=== PATIENT | female | born 1950 | race Caucasian/White ===

== ENCOUNTER 2017-09-03 16:38 | Inpatient (IN) | payer MEDICARE, OTHER ==
[2017-09-03 17:44] LABS: ADD MAN DIFF? NO
[2017-09-03 17:51] LABS: BASOPHIL # 0.1 10^3/ul (0.0-0.1); BASOPHILS % 0.4 % (0.0-2.0); EOSINOPHILS # 0.2 10^3/ul (0.0-0.5); EOSINOPHILS % 1.5 % (0.0-7.0); HEMOGLOBIN 12.2 g/dl (12.0-16.0); LYMPHOCYTES # 1.5 10^3/ul (0.8-2.9); LYMPHOCYTES % 12.9 % (15.0-51.0); MEAN CORPUSCULAR HEMOGLOBIN 29.7 pg (29.0-33.0); MEAN CORPUSCULAR HGB CONC 30.5 g/dl (32.0-37.0); MEAN CORPUSCULAR VOLUME 97.3 fl (82.0-101.0); MONOCYTE # 0.8 10^3/ul (0.3-0.9); MONOCYTES % 6.8 % (0.0-11.0); NEUTROPHIL # 8.8 10^3/ul (1.6-7.5); NEUTROPHILS % 76.7 % (39.0-77.0); NUCLEATED RED BLOOD CELLS # 0.1 10^3/ul (0.0-0.0); NUCLEATED RED BLOOD CELLS% 0.4 /100WBC (0.0-0.0); PLATELET COUNT 328 10^3/UL (140-415); RED BLOOD COUNT 4.11 10^6/ul (4.20-5.40); RED CELL DISTRIBUTION WIDTH 16.5 % (11.5-14.5)
[2017-09-03 17:51] LABS: WHITE BLOOD COUNT 11.4 10^3/ul (4.8-10.8)
[2017-09-03 18:07] LABS: INR 0.87; PROTIME 11.9 Sec (11.9-14.9); PT RATIO 0.9
[2017-09-03 18:19] LABS: ALANINE AMINOTRANSFERASE 61 IU/L (13-69); ALBUMIN/GLOBULIN RATIO 1.21; ALKALINE PHOSPHATASE 120 IU/L (42-121); ASPARTATE AMINO TRANSFERASE 40 IU/L (15-46); BILIRUBIN,INDIRECT 0.1 mg/dl (0-1.1); BILIRUBIN,TOTAL 0.1 mg/dl (0.2-1.3); BLOOD UREA NITROGEN 15 mg/dl (7-20); CALCIUM 9.5 mg/dl (8.4-10.2); CHLORIDE 89 mmol/L (97-110); CREATININE 0.83 mg/dl (0.44-1.00); GLUCOSE 301 mg/dl (70-220); POTASSIUM 4.4 mmol/L (3.5-5.1); SODIUM 142 mmol/L (135-144); TOTAL PROTEIN 7.3 g/dl (6.1-8.1)
[2017-09-03 18:48] LABS: B-TYPE NATRIURETIC PEPTIDE 1890 PG/ML (0-125)
[2017-09-03 18:49] LABS: CARBON DIOXIDE 43 mmol/L (21-31)
[2017-09-03 18:50] LABS: ANION GAP 14 (8-16)
[2017-09-03 18:52] LABS: TROPONIN-I < 0.012 ng/ml (0.00-0.12)
[2017-09-03] MEDS: FUROSEMIDE 40 MG INJ IV (21:57)
[2017-09-03] MEDS ORDERED: ONDANSETRON 4 MG INJ IV (22:00)
[2017-09-03] MEDS ORDERED: ACETAMINOPHEN 325 MG TAB PO (22:00)
[2017-09-04] MEDS ORDERED: NITROGLYCERIN (SL) 0.4 MG TAB SL
[2017-09-04] MEDS ORDERED: ONDANSETRON 4 MG INJ IV
[2017-09-04] MEDS ORDERED: ACETAMINOPHEN 325 MG TAB PO
[2017-09-04] MEDS ORDERED: NACL 0.9% 3 ML SYG IV
[2017-09-04] MEDS ORDERED: morphine 2 MG INJ IV
[2017-09-04 00:38] LABS: CREATINE KINASE 29 IU/L (23-200)
[2017-09-04 00:50] LABS: CK INDEX 3.9; CK-MB 1.14 ng/ml (0.0-2.4)
[2017-09-04 00:54] LABS: TROPONIN-I < 0.012 ng/ml (0.00-0.12)
[2017-09-04] MEDS: IOHEXOL 100 ML (02:57)
[2017-09-04] MEDS: SOD CHLORIDE 0.9% 100 ML (03:56)
[2017-09-04 05:49] LABS: WHITE BLOOD COUNT 12.1 10^3/ul (4.8-10.8)
[2017-09-04 05:49] LABS: ADD MAN DIFF? NO; BASOPHILS % 0.3 % (0.0-2.0); EOSINOPHILS # 0.2 10^3/ul (0.0-0.5); EOSINOPHILS % 1.7 % (0.0-7.0); HEMATOCRIT 39.8 % (37.0-47.0); LYMPHOCYTES % 16.3 % (15.0-51.0); MEAN CORPUSCULAR HEMOGLOBIN 29.3 pg (29.0-33.0); MEAN CORPUSCULAR HGB CONC 30.2 g/dl (32.0-37.0); MEAN CORPUSCULAR VOLUME 97.1 fl (82.0-101.0); MEAN PLATELET VOLUME 9.9 fl (7.4-10.4); MONOCYTES % 8.6 % (0.0-11.0); NEUTROPHIL # 8.7 10^3/ul (1.6-7.5); NEUTROPHILS % 71.9 % (39.0-77.0); NUCLEATED RED BLOOD CELLS% 0.2 /100WBC (0.0-0.0); PLATELET COUNT 314 10^3/UL (140-415); RED CELL DISTRIBUTION WIDTH 16.6 % (11.5-14.5)
[2017-09-04] MEDS ORDERED: ALBUTEROL HFA 8 GM INHALER INH (06:00)
[2017-09-04 06:06] LABS: CREATINE KINASE 33 IU/L (23-200)
[2017-09-04 06:12] LABS: ALANINE AMINOTRANSFERASE 53 IU/L (13-69); ALBUMIN 3.6 g/dl (3.3-4.9); ALBUMIN/GLOBULIN RATIO 1.28; ALKALINE PHOSPHATASE 115 IU/L (42-121); ASPARTATE AMINO TRANSFERASE 34 IU/L (15-46); BILIRUBIN,INDIRECT 0.2 mg/dl (0-1.1); BILIRUBIN,TOTAL 0.2 mg/dl (0.2-1.3); BLOOD UREA NITROGEN 18 mg/dl (7-20); CALCIUM 9.4 mg/dl (8.4-10.2); CHLORIDE 87 mmol/L (97-110); CREATININE 0.81 mg/dl (0.44-1.00); GLUCOSE 246 mg/dl (70-220); MAGNESIUM 1.7 mg/dl (1.7-2.5); POTASSIUM 4.4 mmol/L (3.5-5.1); SODIUM 142 mmol/L (135-144); TOTAL PROTEIN 6.4 g/dl (6.1-8.1)
[2017-09-04 06:14] LABS: CK INDEX 3.4; CK-MB 1.13 ng/ml (0.0-2.4)
[2017-09-04 06:33] LABS: ANION GAP 19 (8-16)
[2017-09-04 06:35] LABS: TROPONIN-I < 0.012 ng/ml (0.00-0.12)
[2017-09-04 07:16] LABS: CARBON DIOXIDE 45 mmol/L (21-31)
[2017-09-04] MEDS ORDERED: ENOXAPARIN 40 MG/0.4 ML SYG SC (10:00)
[2017-09-04] MEDS ORDERED: GLUCOSE GEL 15 GRAM TUBE PO ×2 (10:30)
[2017-09-04] MEDS ORDERED: GLUCOSE GEL 15 GRAM TUBE BUCCAL (10:30)
[2017-09-04] MEDS ORDERED: GLUCAGON 1 MG INJ IM (10:30)
[2017-09-04] MEDS ORDERED: DEXTROSE 50% 50 ML SYRINGE IV ×2 (10:30)
[2017-09-04] MEDS: INSULIN ASPART [NOVOLOG] 3 ML PEN SC ×2 (11:50)
[2017-09-04] MEDS: SPIRONOLACTONE 25 MG TAB PO (12:18)
[2017-09-04] MEDS: AMIODARONE 200 MG TAB PO (12:19)
[2017-09-04] MEDS: METOPROLOL 25 MG TAB PO ×2 (12:19→21:00)
[2017-09-04] MEDS: ENOXAPARIN 40 MG/0.4 ML SYG SC (12:22)
[2017-09-04] MEDS: DIGOXIN 0.125 MG TAB PO (12:25)
[2017-09-04] MEDS: ALBUTEROL/IPRATROPIUM (NEB) 3 ML AMP HHN ×2 (15:22→19:12)
[2017-09-04] MEDS: FUROSEMIDE 40 MG INJ IV (16:53)
[2017-09-04] MEDS: REPAGLINIDE 1 MG TAB PO (17:01)
[2017-09-04] MEDS ORDERED: INSULIN GLARGINE [LANtus] 3 ML PEN SC (20:00)
[2017-09-04] MEDS: SALMETEROL/FLUTICASONE 250/50 INHA INH (20:18)
[2017-09-04] MEDS: ATORVASTATIN 40 MG TAB PO (20:18)
[2017-09-05 08:06] LABS: ADD MAN DIFF? NO
[2017-09-05 08:10] LABS: WHITE BLOOD COUNT 9.3 10^3/ul (4.8-10.8)
[2017-09-05 08:10] LABS: BASOPHILS % 0.4 % (0.0-2.0); EOSINOPHILS # 0.2 10^3/ul (0.0-0.5); EOSINOPHILS % 1.6 % (0.0-7.0); HEMATOCRIT 38.7 % (37.0-47.0); HEMOGLOBIN 11.8 g/dl (12.0-16.0); LYMPHOCYTES # 1.5 10^3/ul (0.8-2.9); LYMPHOCYTES % 16.2 % (15.0-51.0); MEAN CORPUSCULAR HEMOGLOBIN 29.5 pg (29.0-33.0); MEAN CORPUSCULAR HGB CONC 30.5 g/dl (32.0-37.0); MEAN CORPUSCULAR VOLUME 96.8 fl (82.0-101.0); MEAN PLATELET VOLUME 9.9 fl (7.4-10.4); MONOCYTE # 0.7 10^3/ul (0.3-0.9); MONOCYTES % 7.4 % (0.0-11.0); NEUTROPHIL # 6.9 10^3/ul (1.6-7.5); NEUTROPHILS % 73.4 % (39.0-77.0); PLATELET COUNT 306 10^3/UL (140-415); RED CELL DISTRIBUTION WIDTH 16.8 % (11.5-14.5)
[2017-09-05 08:23] LABS: CHOL/HDL RATIO 6.5 RATIO; CHOLESTEROL 189 mg/dl (100-200); HDL CHOLESTEROL 29 mg/dl (35-98); LDL CHOLESTEROL,CALCULATED 124 mg/dl; MAGNESIUM 1.7 mg/dl (1.7-2.5); TRIGLYCERIDES 179 mg/dl (0-149)
[2017-09-05 08:23] LABS: PHOSPHORUS 4.6 mg/dl (2.5-4.9)
[2017-09-05 08:25] LABS: ALANINE AMINOTRANSFERASE 52 IU/L (13-69); ALBUMIN 3.6 g/dl (3.3-4.9); ALBUMIN/GLOBULIN RATIO 1.16; ALKALINE PHOSPHATASE 106 IU/L (42-121); ASPARTATE AMINO TRANSFERASE 29 IU/L (15-46); BILIRUBIN,INDIRECT 0.3 mg/dl (0-1.1); BILIRUBIN,TOTAL 0.3 mg/dl (0.2-1.3); BLOOD UREA NITROGEN 17 mg/dl (7-20); CALCIUM 9.3 mg/dl (8.4-10.2); CHLORIDE 86 mmol/L (97-110); CREATININE 0.87 mg/dl (0.44-1.00); GLUCOSE 254 mg/dl (70-220); POTASSIUM 4.2 mmol/L (3.5-5.1); SODIUM 141 mmol/L (135-144); TOTAL PROTEIN 6.7 g/dl (6.1-8.1)
[2017-09-05] MEDS: SALMETEROL/FLUTICASONE 250/50 INHA INH ×2 (08:41→20:24)
[2017-09-05] MEDS: SPIRONOLACTONE 25 MG TAB PO (08:42)
[2017-09-05] MEDS: REPAGLINIDE 1 MG TAB PO ×3 (08:42→17:23)
[2017-09-05] MEDS: LINAGLIPTIN 5 MG TABLET PO (08:42)
[2017-09-05 08:46] LABS: ANION GAP 11 (8-16); CARBON DIOXIDE 48 mmol/L (21-31)
[2017-09-05] MEDS: ENOXAPARIN 40 MG/0.4 ML SYG SC (08:48)
[2017-09-05] MEDS: ALBUTEROL/IPRATROPIUM (NEB) 3 ML AMP HHN ×3 (09:39→19:23)
[2017-09-05] MEDS: METOPROLOL 25 MG TAB PO ×2 (10:06→20:28)
[2017-09-05] MEDS: ACETAZOLAMIDE 500 MG INJ IV (12:25)
[2017-09-05] MEDS: DIGOXIN 0.125 MG TAB PO (12:28)
[2017-09-05] MEDS: BUMETANIDE 1 MG TAB PO (17:23)
[2017-09-05] MEDS: ATORVASTATIN 40 MG TAB PO (20:25)
[2017-09-06] MEDS: BUMETANIDE 1 MG TAB PO ×2 (06:43→17:13)
[2017-09-06] MEDS: REPAGLINIDE 1 MG TAB PO ×3 (08:16→17:13)
[2017-09-06] MEDS: LINAGLIPTIN 5 MG TABLET PO (08:16)
[2017-09-06] MEDS: SPIRONOLACTONE 25 MG TAB PO (08:16)
[2017-09-06] MEDS: METOPROLOL 25 MG TAB PO ×2 (08:17→20:32)
[2017-09-06] MEDS: SALMETEROL/FLUTICASONE 250/50 INHA INH ×2 (08:17→20:32)
[2017-09-06 08:24] LABS: ADD MAN DIFF? NO
[2017-09-06] MEDS: ENOXAPARIN 40 MG/0.4 ML SYG SC (08:27)
[2017-09-06 08:35] LABS: WHITE BLOOD COUNT 10.3 10^3/ul (4.8-10.8)
[2017-09-06 08:35] LABS: BASOPHIL # 0.1 10^3/ul (0.0-0.1); BASOPHILS % 0.5 % (0.0-2.0); EOSINOPHILS # 0.2 10^3/ul (0.0-0.5); HEMATOCRIT 39.5 % (37.0-47.0); LYMPHOCYTES # 1.8 10^3/ul (0.8-2.9); LYMPHOCYTES % 17.5 % (15.0-51.0); MEAN CORPUSCULAR HEMOGLOBIN 29.2 pg (29.0-33.0); MEAN CORPUSCULAR HGB CONC 30.4 g/dl (32.0-37.0); MEAN CORPUSCULAR VOLUME 96.1 fl (82.0-101.0); MEAN PLATELET VOLUME 10.2 fl (7.4-10.4); MONOCYTE # 0.8 10^3/ul (0.3-0.9); MONOCYTES % 7.9 % (0.0-11.0); NEUTROPHIL # 7.4 10^3/ul (1.6-7.5); NEUTROPHILS % 71.4 % (39.0-77.0); PLATELET COUNT 323 10^3/UL (140-415); RED BLOOD COUNT 4.11 10^6/ul (4.20-5.40); RED CELL DISTRIBUTION WIDTH 16.9 % (11.5-14.5)
[2017-09-06 08:49] LABS: BLOOD UREA NITROGEN 24 mg/dl (7-20); CALCIUM 9.7 mg/dl (8.4-10.2); CHLORIDE 88 mmol/L (97-110); GLUCOSE 251 mg/dl (70-220); POTASSIUM 4.3 mmol/L (3.5-5.1)
[2017-09-06 08:55] LABS: PHOSPHORUS 5.3 mg/dl (2.5-4.9)
[2017-09-06 08:55] LABS: MAGNESIUM 1.9 mg/dl (1.7-2.5)
[2017-09-06 09:05] LABS: ANION GAP 15 (8-16)
[2017-09-06 09:09] LABS: SODIUM 140 mmol/L (135-144)
[2017-09-06] MEDS: INSULIN GLARGINE [LANtus] 3 ML PEN SC ×2 (09:56→11:57)
[2017-09-06] MEDS: ALBUTEROL/IPRATROPIUM (NEB) 3 ML AMP HHN ×3 (10:20→20:20)
[2017-09-06] MEDS: DIGOXIN 0.125 MG TAB PO (13:00)
[2017-09-06] MEDS: INSULIN ASPART [NOVOLOG] 3 ML PEN SC ×4 (13:41→20:36)
[2017-09-06] MEDS: ATORVASTATIN 40 MG TAB PO (20:32)
[2017-09-07] MEDS: BUMETANIDE 1 MG TAB PO ×2 (06:28→17:02)
[2017-09-07] MEDS: ALBUTEROL/IPRATROPIUM (NEB) 3 ML AMP HHN ×3 (07:52→20:27)
[2017-09-07 08:07] LABS: ADD MAN DIFF? NO
[2017-09-07] MEDS: REPAGLINIDE 1 MG TAB PO ×3 (08:10→17:02)
[2017-09-07 08:13] LABS: WHITE BLOOD COUNT 10.4 10^3/ul (4.8-10.8)
[2017-09-07 08:13] LABS: BASOPHIL # 0.1 10^3/ul (0.0-0.1); BASOPHILS % 0.5 % (0.0-2.0); EOSINOPHILS # 0.2 10^3/ul (0.0-0.5); EOSINOPHILS % 1.9 % (0.0-7.0); HEMATOCRIT 39.9 % (37.0-47.0); HEMOGLOBIN 12.2 g/dl (12.0-16.0); LYMPHOCYTES # 1.8 10^3/ul (0.8-2.9); LYMPHOCYTES % 17.2 % (15.0-51.0); MEAN CORPUSCULAR HGB CONC 30.6 g/dl (32.0-37.0); MEAN PLATELET VOLUME 9.9 fl (7.4-10.4); MONOCYTE # 0.7 10^3/ul (0.3-0.9); MONOCYTES % 6.9 % (0.0-11.0); NEUTROPHIL # 7.6 10^3/ul (1.6-7.5); NEUTROPHILS % 73.1 % (39.0-77.0); PLATELET COUNT 329 10^3/UL (140-415); RED CELL DISTRIBUTION WIDTH 16.7 % (11.5-14.5)
[2017-09-07] MEDS: SPIRONOLACTONE 25 MG TAB PO (08:17)
[2017-09-07] MEDS: SALMETEROL/FLUTICASONE 250/50 INHA INH ×2 (08:17→20:51)
[2017-09-07] MEDS: LINAGLIPTIN 5 MG TABLET PO (08:17)
[2017-09-07] MEDS: INSULIN GLARGINE [LANtus] 3 ML PEN SC (08:26)
[2017-09-07] MEDS: ENOXAPARIN 40 MG/0.4 ML SYG SC (08:27)
[2017-09-07] MEDS: INSULIN ASPART [NOVOLOG] 3 ML PEN SC ×7 (08:27→20:55)
[2017-09-07] MEDS: METOPROLOL 25 MG TAB PO ×2 (08:29→20:53)
[2017-09-07 08:45] LABS: BLOOD UREA NITROGEN 25 mg/dl (7-20); CALCIUM 9.1 mg/dl (8.4-10.2); CHLORIDE 91 mmol/L (97-110); CREATININE 1.12 mg/dl (0.44-1.00); GLUCOSE 181 mg/dl (70-220); POTASSIUM 4.3 mmol/L (3.5-5.1); SODIUM 142 mmol/L (135-144)
[2017-09-07 08:58] LABS: ANION GAP 14 (8-16)
[2017-09-07 09:02] LABS: CARBON DIOXIDE 41 mmol/L (21-31)
[2017-09-07 10:05] LABS: CARBON DIOXIDE 41 mmol/L (21-31)
[2017-09-07] MEDS: DIGOXIN 0.125 MG TAB PO (13:00)
[2017-09-07] MEDS: ATORVASTATIN 40 MG TAB PO (20:51)
[2017-09-08] MEDS: BUMETANIDE 1 MG TAB PO ×2 (06:04→17:02)
[2017-09-08] MEDS: ALBUTEROL/IPRATROPIUM (NEB) 3 ML AMP HHN ×3 (08:08→21:56)
[2017-09-08 08:11] LABS: ADD MAN DIFF? NO
[2017-09-08 08:24] LABS: BASOPHILS % 0.3 % (0.0-2.0); EOSINOPHILS # 0.2 10^3/ul (0.0-0.5); EOSINOPHILS % 1.8 % (0.0-7.0); HEMATOCRIT 38.9 % (37.0-47.0); HEMOGLOBIN 11.9 g/dl (12.0-16.0); LYMPHOCYTES # 1.8 10^3/ul (0.8-2.9); LYMPHOCYTES % 16.7 % (15.0-51.0); MEAN CORPUSCULAR HEMOGLOBIN 28.7 pg (29.0-33.0); MEAN CORPUSCULAR HGB CONC 30.6 g/dl (32.0-37.0); MEAN PLATELET VOLUME 10.1 fl (7.4-10.4); MONOCYTE # 0.7 10^3/ul (0.3-0.9); MONOCYTES % 6.8 % (0.0-11.0); NEUTROPHIL # 7.7 10^3/ul (1.6-7.5); NEUTROPHILS % 73.8 % (39.0-77.0); PLATELET COUNT 317 10^3/UL (140-415); RED BLOOD COUNT 4.14 10^6/ul (4.20-5.40); RED CELL DISTRIBUTION WIDTH 16.7 % (11.5-14.5)
[2017-09-08 08:24] LABS: WHITE BLOOD COUNT 10.5 10^3/ul (4.8-10.8)
[2017-09-08] MEDS: REPAGLINIDE 1 MG TAB PO ×3 (08:42→17:02)
[2017-09-08] MEDS: LINAGLIPTIN 5 MG TABLET PO (08:43)
[2017-09-08] MEDS: SPIRONOLACTONE 25 MG TAB PO (08:46)
[2017-09-08] MEDS: SALMETEROL/FLUTICASONE 250/50 INHA INH ×2 (08:47→20:22)
[2017-09-08 08:53] LABS: BLOOD UREA NITROGEN 28 mg/dl (7-20); CALCIUM 8.8 mg/dl (8.4-10.2); CHLORIDE 92 mmol/L (97-110); CREATININE 1.04 mg/dl (0.44-1.00); GLUCOSE 182 mg/dl (70-220); POTASSIUM 3.8 mmol/L (3.5-5.1); SODIUM 142 mmol/L (135-144)
[2017-09-08] MEDS: INSULIN ASPART [NOVOLOG] 3 ML PEN SC ×6 (08:54→20:28)
[2017-09-08] MEDS: ENOXAPARIN 40 MG/0.4 ML SYG SC (08:56)
[2017-09-08] MEDS: INSULIN GLARGINE [LANtus] 3 ML PEN SC (08:56)
[2017-09-08] MEDS: METOPROLOL 25 MG TAB PO ×2 (08:59→20:24)
[2017-09-08 09:44] LABS: CARBON DIOXIDE 36 mmol/L (21-31)
[2017-09-08 09:45] LABS: ANION GAP 18 (8-16)
[2017-09-08] MEDS: DIGOXIN 0.125 MG TAB PO (11:56)
[2017-09-08] MEDS: ATORVASTATIN 40 MG TAB PO (20:22)
[2017-09-09] MEDS: ACCU-CHEK XX (02:32)
[2017-09-09] MEDS: BUMETANIDE 1 MG TAB PO ×2 (06:20→17:21)
[2017-09-09] MEDS: INSULIN GLARGINE [LANtus] 3 ML PEN SC (07:53)
[2017-09-09] MEDS: REPAGLINIDE 1 MG TAB PO ×3 (07:55→17:21)
[2017-09-09] MEDS: ALBUTEROL/IPRATROPIUM (NEB) 3 ML AMP HHN ×3 (08:20→19:35)
[2017-09-09] MEDS: SALMETEROL/FLUTICASONE 250/50 INHA INH ×2 (08:49→20:31)
[2017-09-09] MEDS: LINAGLIPTIN 5 MG TABLET PO (08:51)
[2017-09-09] MEDS: SPIRONOLACTONE 25 MG TAB PO (08:51)
[2017-09-09] MEDS: METOPROLOL 25 MG TAB PO ×2 (08:53→20:30)
[2017-09-09] MEDS: INSULIN ASPART [NOVOLOG] 3 ML PEN SC ×6 (08:58→20:33)
[2017-09-09] MEDS: ENOXAPARIN 40 MG/0.4 ML SYG SC (09:04)
[2017-09-09 09:20] LABS: ADD MAN DIFF? NO
[2017-09-09 09:29] LABS: BASOPHILS % 0.3 % (0.0-2.0); EOSINOPHILS # 0.2 10^3/ul (0.0-0.5); EOSINOPHILS % 1.3 % (0.0-7.0); HEMATOCRIT 42.1 % (37.0-47.0); LYMPHOCYTES # 1.5 10^3/ul (0.8-2.9); LYMPHOCYTES % 12.7 % (15.0-51.0); MEAN CORPUSCULAR HEMOGLOBIN 29.2 pg (29.0-33.0); MEAN CORPUSCULAR HGB CONC 30.9 g/dl (32.0-37.0); MEAN CORPUSCULAR VOLUME 94.6 fl (82.0-101.0); MEAN PLATELET VOLUME 9.5 fl (7.4-10.4); MONOCYTE # 0.8 10^3/ul (0.3-0.9); MONOCYTES % 6.7 % (0.0-11.0); NEUTROPHIL # 9.1 10^3/ul (1.6-7.5); NEUTROPHILS % 78.5 % (39.0-77.0); PLATELET COUNT 339 10^3/UL (140-415); RED BLOOD COUNT 4.45 10^6/ul (4.20-5.40); RED CELL DISTRIBUTION WIDTH 16.5 % (11.5-14.5)
[2017-09-09 09:29] LABS: WHITE BLOOD COUNT 11.7 10^3/ul (4.8-10.8)
[2017-09-09 10:02] LABS: ANION GAP 15 (8-16); BLOOD UREA NITROGEN 23 mg/dl (7-20); CALCIUM 8.7 mg/dl (8.4-10.2); CARBON DIOXIDE 39 mmol/L (21-31); CHLORIDE 93 mmol/L (97-110); CREATININE 0.91 mg/dl (0.44-1.00); GLUCOSE 185 mg/dl (70-220); SODIUM 143 mmol/L (135-144)
[2017-09-09 14:20] LABS: TROPONIN-I < 0.012 ng/ml (0.00-0.12)
[2017-09-09] MEDS: DIGOXIN 0.125 MG TAB PO (14:41)
[2017-09-09] MEDS: ATORVASTATIN 40 MG TAB PO (20:30)
[2017-09-10 01:32] LABS: TROPONIN-I < 0.012 ng/ml (0.00-0.12)
[2017-09-10] MEDS: ACCU-CHEK XX (01:46)
[2017-09-10] MEDS: ALBUTEROL/IPRATROPIUM (NEB) 3 ML AMP HHN ×3 (07:41→19:34)
[2017-09-10 07:46] LABS: ADD MAN DIFF? NO
[2017-09-10 07:52] LABS: BASOPHILS % 0.3 % (0.0-2.0); EOSINOPHILS # 0.1 10^3/ul (0.0-0.5); HEMATOCRIT 38.5 % (37.0-47.0); HEMOGLOBIN 11.9 g/dl (12.0-16.0); LYMPHOCYTES # 1.7 10^3/ul (0.8-2.9); LYMPHOCYTES % 15.6 % (15.0-51.0); MEAN CORPUSCULAR HEMOGLOBIN 29.2 pg (29.0-33.0); MEAN CORPUSCULAR HGB CONC 30.9 g/dl (32.0-37.0); MEAN CORPUSCULAR VOLUME 94.6 fl (82.0-101.0); MEAN PLATELET VOLUME 9.6 fl (7.4-10.4); MONOCYTE # 0.9 10^3/ul (0.3-0.9); MONOCYTES % 8.7 % (0.0-11.0); NEUTROPHIL # 7.8 10^3/ul (1.6-7.5); NEUTROPHILS % 73.9 % (39.0-77.0); PLATELET COUNT 298 10^3/UL (140-415); RED BLOOD COUNT 4.07 10^6/ul (4.20-5.40); RED CELL DISTRIBUTION WIDTH 16.4 % (11.5-14.5)
[2017-09-10 07:52] LABS: WHITE BLOOD COUNT 10.6 10^3/ul (4.8-10.8)
[2017-09-10 08:11] LABS: ANION GAP 13 (8-16); BLOOD UREA NITROGEN 24 mg/dl (7-20); CALCIUM 8.3 mg/dl (8.4-10.2); CARBON DIOXIDE 37 mmol/L (21-31); CHLORIDE 95 mmol/L (97-110); CREATININE 0.86 mg/dl (0.44-1.00); GLUCOSE 140 mg/dl (70-220); SODIUM 141 mmol/L (135-144)
[2017-09-10] MEDS: BUMETANIDE 1 MG TAB PO ×2 (08:14→17:38)
[2017-09-10] MEDS: REPAGLINIDE 1 MG TAB PO ×3 (08:14→17:26)
[2017-09-10] MEDS: INSULIN ASPART [NOVOLOG] 3 ML PEN SC ×7 (08:17→21:49)
[2017-09-10] MEDS: SALMETEROL/FLUTICASONE 250/50 INHA INH ×2 (08:19→21:41)
[2017-09-10] MEDS: INSULIN GLARGINE [LANtus] 3 ML PEN SC (08:19)
[2017-09-10] MEDS: SPIRONOLACTONE 25 MG TAB PO (08:24)
[2017-09-10] MEDS: METOPROLOL 25 MG TAB PO ×2 (08:24→21:40)
[2017-09-10] MEDS: LINAGLIPTIN 5 MG TABLET PO (08:24)
[2017-09-10] MEDS: ENOXAPARIN 40 MG/0.4 ML SYG SC (08:29)
[2017-09-10] MEDS: DIGOXIN 0.125 MG TAB PO (14:20)
[2017-09-10] MEDS: ATORVASTATIN 40 MG TAB PO (21:39)
[2017-09-11] MEDS: ACCU-CHEK XX (02:31)
[2017-09-11 07:00] LABS: ADD MAN DIFF? NO
[2017-09-11 07:02] LABS: WHITE BLOOD COUNT 10.8 10^3/ul (4.8-10.8)
[2017-09-11 07:02] LABS: BASOPHIL # 0.1 10^3/ul (0.0-0.1); BASOPHILS % 0.5 % (0.0-2.0); EOSINOPHILS # 0.1 10^3/ul (0.0-0.5); EOSINOPHILS % 1.2 % (0.0-7.0); HEMATOCRIT 37.5 % (37.0-47.0); HEMOGLOBIN 11.6 g/dl (12.0-16.0); LYMPHOCYTES # 1.6 10^3/ul (0.8-2.9); LYMPHOCYTES % 15.1 % (15.0-51.0); MEAN CORPUSCULAR HEMOGLOBIN 29.4 pg (29.0-33.0); MEAN CORPUSCULAR HGB CONC 30.9 g/dl (32.0-37.0); MEAN CORPUSCULAR VOLUME 94.9 fl (82.0-101.0); MONOCYTE # 0.8 10^3/ul (0.3-0.9); MONOCYTES % 7.6 % (0.0-11.0); NEUTROPHIL # 8.1 10^3/ul (1.6-7.5); NEUTROPHILS % 75.3 % (39.0-77.0); PLATELET COUNT 297 10^3/UL (140-415); RED BLOOD COUNT 3.95 10^6/ul (4.20-5.40); RED CELL DISTRIBUTION WIDTH 16.8 % (11.5-14.5)
[2017-09-11 07:23] LABS: BLOOD UREA NITROGEN 24 mg/dl (7-20); CALCIUM 8.5 mg/dl (8.4-10.2); CHLORIDE 95 mmol/L (97-110); CREATININE 1.01 mg/dl (0.44-1.00); GLUCOSE 128 mg/dl (70-220); SODIUM 144 mmol/L (135-144)
[2017-09-11 07:26] LABS: MAGNESIUM 2.2 mg/dl (1.7-2.5)
[2017-09-11 07:38] LABS: ANION GAP 17 (8-16); CARBON DIOXIDE 36 mmol/L (21-31)
[2017-09-11] MEDS: INSULIN ASPART [NOVOLOG] 3 ML PEN SC ×7 (07:55→20:22)
[2017-09-11] MEDS: INSULIN GLARGINE [LANtus] 3 ML PEN SC (08:18)
[2017-09-11] MEDS: ENOXAPARIN 40 MG/0.4 ML SYG SC (08:18)
[2017-09-11] MEDS: LINAGLIPTIN 5 MG TABLET PO (08:19)
[2017-09-11] MEDS: SPIRONOLACTONE 25 MG TAB PO (08:19)
[2017-09-11] MEDS: REPAGLINIDE 1 MG TAB PO ×3 (08:19→17:07)
[2017-09-11] MEDS: METOPROLOL 25 MG TAB PO ×2 (08:19→20:14)
[2017-09-11] MEDS: BUMETANIDE 1 MG TAB PO ×2 (08:19→17:07)
[2017-09-11] MEDS: SALMETEROL/FLUTICASONE 250/50 INHA INH ×2 (08:20→20:13)
[2017-09-11] MEDS: ALBUTEROL/IPRATROPIUM (NEB) 3 ML AMP HHN ×3 (08:48→20:19)
[2017-09-11] MEDS: DIGOXIN 0.125 MG TAB PO (12:05)
[2017-09-11] MEDS: ATORVASTATIN 40 MG TAB PO (20:13)
[2017-09-12] MEDS: ACCU-CHEK XX (02:00)
[2017-09-12] MEDS: BUMETANIDE 1 MG TAB PO ×3 (06:10→17:15)
[2017-09-12] MEDS: INSULIN ASPART [NOVOLOG] 3 ML PEN SC ×6 (07:55→17:17)
[2017-09-12] MEDS: ALBUTEROL/IPRATROPIUM (NEB) 3 ML AMP HHN ×2 (08:22→15:28)
[2017-09-12] MEDS: SALMETEROL/FLUTICASONE 250/50 INHA INH (08:36)
[2017-09-12] MEDS: REPAGLINIDE 1 MG TAB PO ×3 (08:43→17:15)
[2017-09-12] MEDS: LINAGLIPTIN 5 MG TABLET PO (08:43)
[2017-09-12] MEDS: SPIRONOLACTONE 25 MG TAB PO (08:43)
[2017-09-12] MEDS: METOPROLOL 25 MG TAB PO (08:44)
[2017-09-12] MEDS: INSULIN GLARGINE [LANtus] 3 ML PEN SC (08:46)
[2017-09-12] MEDS: ENOXAPARIN 40 MG/0.4 ML SYG SC (08:47)
[2017-09-12] MEDS: DIGOXIN 0.125 MG TAB PO (11:55)
== END 2017-09-12 17:35 | disposition home health service (06) | DRG 291 ==
LOC: TEL 21:56 → E/R 16:38
DX: I11.0 Hypertensive heart disease with heart failure (principal); J96.21 Acute and chronic respiratory failure with hypoxia; I27.20 Pulmonary hypertension, unspecified; Z68.41 Body mass index [BMI] 40.0-44.9, adult; E66.2 Morbid (severe) obesity with alveolar hypoventilation; E11.65 Type 2 diabetes mellitus with hyperglycemia; J96.22 Acute and chronic respiratory failure with hypercapnia; Z99.81 Dependence on supplemental oxygen; I50.33 Acute on chronic diastolic (congestive) heart failure; J44.9 Chronic obstructive pulmonary disease, unspecified; I48.2 Chronic atrial fibrillation; E78.5 Hyperlipidemia, unspecified; R07.89 Other chest pain; Z79.4 Long term (current) use of insulin; Z90.5 Acquired absence of kidney; Z87.891 Personal history of nicotine dependence; Z90.710 Acquired absence of both cervix and uterus; Z85.3 Personal history of malignant neoplasm of breast
CPT/HCPCS: 36415; 71045; 71275; 80048; 80053; 80061; 82550; 82553; 82962; 83036; 83735; 83880; 84100; 84443; 84484; 85025; 85378; 85610; 87400; 93005; 93306; 93970; 94640; 94664; 96374; 97161; 99285-25; J1120

== ENCOUNTER 2018-04-03 18:57 | Inpatient (IN) | payer MEDICARE, OTHER ==
[2018-04-03] MEDS: IPRATROPIUM (NEB) 0.5 MG/2.5 ML AMP INH (19:22)
[2018-04-03] MEDS: ALBUTEROL 0.5% (NEB) 2.5 MG/0.5 ML AMP INH (19:22)
[2018-04-03 19:34] LABS: ADD MAN DIFF? NO
[2018-04-03 19:36] LABS: BASOPHILS % 0.3 % (0.0-2.0); EOSINOPHILS # 0.2 10^3/ul (0.0-0.5); EOSINOPHILS % 1.7 % (0.0-7.0); HEMATOCRIT 43.1 % (37.0-47.0); LYMPHOCYTES # 1.8 10^3/ul (0.8-2.9); LYMPHOCYTES % 17.4 % (15.0-51.0); MEAN CORPUSCULAR HEMOGLOBIN 29.2 pg (29.0-33.0); MEAN CORPUSCULAR HGB CONC 30.2 g/dl (32.0-37.0); MEAN CORPUSCULAR VOLUME 96.9 fl (82.0-101.0); MEAN PLATELET VOLUME 10.2 fl (7.4-10.4); MONOCYTE # 0.8 10^3/ul (0.3-0.9); MONOCYTES % 7.5 % (0.0-11.0); NEUTROPHIL # 7.5 10^3/ul (1.6-7.5); NEUTROPHILS % 72.6 % (39.0-77.0); PLATELET COUNT 207 10^3/UL (140-415); RED BLOOD COUNT 4.45 10^6/ul (4.20-5.40); RED CELL DISTRIBUTION WIDTH 17.2 % (11.5-14.5)
[2018-04-03 19:36] LABS: WHITE BLOOD COUNT 10.3 10^3/ul (4.8-10.8)
[2018-04-03 19:50] LABS: INR 0.85; PROTIME 11.7 Sec (11.9-14.9); PT RATIO 0.9
[2018-04-03 19:51] LABS: PARTIAL THROMBOPLASTIN TIME 32.4 Sec (23.0-35.0)
[2018-04-03] MEDS: METHYLPREDNISOLONE 125 MG INJ IV (19:52)
[2018-04-03 19:55] LABS: LACTIC ACID 1.2 mmol/L (0.5-2.0)
[2018-04-03 19:57] LABS: ALANINE AMINOTRANSFERASE 35 IU/L (13-69); ALBUMIN 3.4 g/dl (3.3-4.9); ALBUMIN/GLOBULIN RATIO 1.06; ALKALINE PHOSPHATASE 75 IU/L (42-121); AMYLASE 78 U/L (11-123); ASPARTATE AMINO TRANSFERASE 34 IU/L (15-46); BILIRUBIN,INDIRECT 0.4 mg/dl (0-1.1); BILIRUBIN,TOTAL 0.4 mg/dl (0.2-1.3); BLOOD UREA NITROGEN 19 mg/dl (7-20); CALCIUM 9.5 mg/dl (8.4-10.2); CHLORIDE 92 mmol/L (97-110); CREATININE 0.76 mg/dl (0.44-1.00); GLUCOSE 117 mg/dl (70-220); LIPASE 487 U/L (23-300); POTASSIUM 4.6 mmol/L (3.5-5.1); SODIUM 139 mmol/L (135-144); TOTAL PROTEIN 6.6 g/dl (6.1-8.1)
[2018-04-03] MEDS ORDERED: ONDANSETRON 4 MG INJ IV (20:00)
[2018-04-03] MEDS ORDERED: ACETAMINOPHEN 325 MG TAB PO ×2 (20:00→20:30)
[2018-04-03 20:05] LABS: ANION GAP 11 (8-16)
[2018-04-03 20:07] LABS: CARBON DIOXIDE 41 mmol/L (21-31)
[2018-04-03 20:08] LABS: TROPONIN-I < 0.012 ng/ml (0.000-0.120)
[2018-04-03] MEDS: CEFEPIME 2GM/50 ML (PMX) 50 ML IVPB (20:24)
[2018-04-03] MEDS ORDERED: NACL 0.9% 3 ML SYG IV (20:30)
[2018-04-03] MEDS ORDERED: DOCUSATE SODIUM 100 MG CAP PO (20:30)
[2018-04-03] MEDS ORDERED: BISACODYL (EC) 5 MG TAB PO (20:30)
[2018-04-03] MEDS ORDERED: HYDROCODONE/APAP (5/325) TAB PO (20:30)
[2018-04-03] MEDS ORDERED: LEVALBUTEROL (NEB) 1.25 MG/0.5 ML AMP HHN (20:30)
[2018-04-03 20:39] LABS: ADD UMIC YES; UR ASCORBIC ACID NEGATIVE (NEGATIVE); UR BACTERIA FEW /HPF (NONE SEEN); UR BILIRUBIN (Dip) NEGATIVE (NEGATIVE); UR BLOOD (Dip) NEGATIVE (NEGATIVE); UR CLARITY CLEAR (CLEAR); UR COLOR YELLOW (YELLOW); UR GLUCOSE (Dip) NEGATIVE (NEGATIVE); UR KETONES (Dip) NEGATIVE (NEGATIVE); UR LEUKOCYTE ESTERASE (Dip) NEGATIVE Leu/ul (NEGATIVE); UR NITRITE (Dip) NEGATIVE (NEGATIVE); UR RBC 0 /HPF (0-5); UR SPECIFIC GRAVITY (Dip) 1.009 (1.003-1.030); UR SQUAMOUS EPITHELIAL CELL FEW /HPF (FEW); UR TOTAL PROTEIN (Dip) 1+ mg/dl (NEGATIVE); UR UROBILINOGEN (Dip) NEGATIVE (NEGATIVE); UR WBC 5 /HPF (0-5)
[2018-04-03] MEDS: VANCOMYCIN 1 GM (PMX) 250 ML IVPB (21:01)
[2018-04-03] MEDS: ALBUTEROL/IPRATROPIUM (NEB) 3 ML AMP HHN (21:12)
[2018-04-03 21:19] LABS: LACTIC ACID 1.5 mmol/L (0.5-2.0)
[2018-04-04] MEDS: METHYLPREDNISOLONE 40 MG INJ IV ×2 (00:34→06:15)
[2018-04-04 01:28] LABS: LACTIC ACID 4.2 mmol/L (0.5-2.0)
[2018-04-04] MEDS: SOD CHLORIDE 0.9% 500 ML IV ×2 (01:58→15:08)
[2018-04-04] MEDS ORDERED: DEXTROSE 50% 50 ML SYRINGE IV ×2 (06:00)
[2018-04-04] MEDS ORDERED: GLUCAGON 1 MG INJ IM (06:00)
[2018-04-04] MEDS ORDERED: GLUCOSE GEL 15 GRAM TUBE BUCCAL (06:00)
[2018-04-04] MEDS ORDERED: GLUCOSE GEL 15 GRAM TUBE PO ×2 (06:00)
[2018-04-04] MEDS: BUMETANIDE 1 MG TAB PO (06:00)
[2018-04-04 06:04] LABS: ADD MAN DIFF? NO
[2018-04-04 06:13] LABS: ABNORMAL IP MESSAGE 1; BASOPHILS % 0.3 % (0.0-2.0); HEMATOCRIT 44.9 % (37.0-47.0); HEMOGLOBIN 13.3 g/dl (12.0-16.0); LYMPHOCYTES # 0.3 10^3/ul (0.8-2.9); LYMPHOCYTES % 3.5 % (15.0-51.0); MEAN CORPUSCULAR HEMOGLOBIN 29.4 pg (29.0-33.0); MEAN CORPUSCULAR HGB CONC 29.6 g/dl (32.0-37.0); MEAN CORPUSCULAR VOLUME 99.3 fl (82.0-101.0); MONOCYTE # 0.1 10^3/ul (0.3-0.9); MONOCYTES % 0.6 % (0.0-11.0); NEUTROPHIL # 9.2 10^3/ul (1.6-7.5); NEUTROPHILS % 94.3 % (39.0-77.0); PLATELET COUNT 191 10^3/UL (140-415); RED BLOOD COUNT 4.52 10^6/ul (4.20-5.40); RED CELL DISTRIBUTION WIDTH 17.1 % (11.5-14.5)
[2018-04-04 06:13] LABS: WHITE BLOOD COUNT 9.8 10^3/ul (4.8-10.8)
[2018-04-04] MEDS: PANTOPRAZOLE 40 MG INJ IV (06:15)
[2018-04-04] MEDS: PIPER-TAZO 3.375 GM IV (PMX) 100 ML IVPB ×3 (06:15→17:33)
[2018-04-04 06:19] LABS: POSITIVE DIFF @See below
[2018-04-04 06:34] LABS: HEMOGLOBIN A1C 8.1 % (0-5.9)
[2018-04-04 06:39] LABS: LACTIC ACID 1.7 mmol/L (0.5-2.0)
[2018-04-04 06:44] LABS: LIPASE 156 U/L (23-300)
[2018-04-04 06:53] LABS: ALANINE AMINOTRANSFERASE 30 IU/L (13-69); ALBUMIN 3.4 g/dl (3.3-4.9); ALBUMIN/GLOBULIN RATIO 1.09; ALKALINE PHOSPHATASE 88 IU/L (42-121); ANION GAP 14 (8-16); ASPARTATE AMINO TRANSFERASE 25 IU/L (15-46); BILIRUBIN,INDIRECT 0.5 mg/dl (0-1.1); BILIRUBIN,TOTAL 0.5 mg/dl (0.2-1.3); BLOOD UREA NITROGEN 21 mg/dl (7-20); CALCIUM 8.9 mg/dl (8.4-10.2); CARBON DIOXIDE 39 mmol/L (21-31); CHLORIDE 92 mmol/L (97-110); CREATININE 0.76 mg/dl (0.44-1.00); MAGNESIUM 1.9 mg/dl (1.7-2.5); POTASSIUM 4.9 mmol/L (3.5-5.1); SODIUM 140 mmol/L (135-144); TOTAL PROTEIN 6.5 g/dl (6.1-8.1)
[2018-04-04 07:06] LABS: THYROID STIMULATING HORMONE 0.457 MIU/L (0.465-4.680)
[2018-04-04 07:07] LABS: GLUCOSE 403 mg/dl (70-220)
[2018-04-04] MEDS: INSULIN ASPART [NOVOLOG] 3 ML PEN SC ×8 (07:46→20:21)
[2018-04-04] MEDS: ACCU-CHEK XX ×4 (08:01→20:21)
[2018-04-04] MEDS: APIXABAN 5 MG TABLET PO ×2 (08:13→20:19)
[2018-04-04] MEDS: SPIRONOLACTONE 25 MG TAB PO (08:13)
[2018-04-04] MEDS: REPAGLINIDE 1 MG TAB PO ×3 (08:14→17:33)
[2018-04-04] MEDS: FLUTICASONE/VILANTEROL 100-25 INH (08:15)
[2018-04-04] MEDS: INSULIN GLARGINE [LANTus] (100 UNITS/ML) SYG SC (08:49)
[2018-04-04] MEDS: ALBUTEROL/IPRATROPIUM (NEB) 3 ML AMP HHN ×4 (10:06→20:43)
[2018-04-04 11:20] LABS: LACTIC ACID 2.6 mmol/L (0.5-2.0)
[2018-04-04] MEDS: FUROSEMIDE 40 MG INJ IV (12:04)
[2018-04-04] MEDS: DIGOXIN 0.125 MG TAB PO (12:45)
[2018-04-04 13:35] LABS: CREATINE KINASE 29 IU/L (23-200)
[2018-04-04 13:41] LABS: LACTIC ACID 3.7 mmol/L (0.5-2.0)
[2018-04-04 13:49] LABS: B-TYPE NATRIURETIC PEPTIDE 2230 PG/ML (0-125); CK INDEX 4.8; TROPONIN-I < 0.012 ng/ml (0.000-0.120)
[2018-04-04 18:46] LABS: CREATINE KINASE 31 IU/L (23-200)
[2018-04-04 18:59] LABS: CK INDEX 5.1; CK-MB 1.59 ng/ml (0.0-2.4); TROPONIN-I < 0.012 ng/ml (0.000-0.120)
[2018-04-04] MEDS: ATORVASTATIN 40 MG TAB PO (20:19)
[2018-04-05] MEDS: PIPER-TAZO 3.375 GM IV (PMX) 100 ML IVPB ×3 (00:29→11:26)
[2018-04-05] MEDS: ACCU-CHEK XX ×5 (02:00→21:00)
[2018-04-05] MEDS: PANTOPRAZOLE 40 MG INJ IV (05:19)
[2018-04-05 06:39] LABS: ADD MAN DIFF? NO
[2018-04-05 06:42] LABS: BASOPHILS % 0.1 % (0.0-2.0); EOSINOPHILS % 0.2 % (0.0-7.0); HEMOGLOBIN 12.4 g/dl (12.0-16.0); LYMPHOCYTES # 1.8 10^3/ul (0.8-2.9); LYMPHOCYTES % 14.7 % (15.0-51.0); MEAN CORPUSCULAR HEMOGLOBIN 29.2 pg (29.0-33.0); MEAN CORPUSCULAR HGB CONC 29.5 g/dl (32.0-37.0); MEAN CORPUSCULAR VOLUME 99.1 fl (82.0-101.0); MEAN PLATELET VOLUME 9.6 fl (7.4-10.4); MONOCYTE # 0.8 10^3/ul (0.3-0.9); MONOCYTES % 6.6 % (0.0-11.0); NEUTROPHIL # 9.3 10^3/ul (1.6-7.5); PLATELET COUNT 196 10^3/UL (140-415); RED BLOOD COUNT 4.24 10^6/ul (4.20-5.40); RED CELL DISTRIBUTION WIDTH 17.5 % (11.5-14.5)
[2018-04-05 07:02] LABS: ALANINE AMINOTRANSFERASE 23 IU/L (13-69); ALBUMIN 3.5 g/dl (3.3-4.9); ALBUMIN/GLOBULIN RATIO 1.25; ALKALINE PHOSPHATASE 64 IU/L (42-121); ASPARTATE AMINO TRANSFERASE 19 IU/L (15-46); BILIRUBIN,INDIRECT 0.3 mg/dl (0-1.1); BILIRUBIN,TOTAL 0.3 mg/dl (0.2-1.3); BLOOD UREA NITROGEN 25 mg/dl (7-20); CALCIUM 8.6 mg/dl (8.4-10.2); CHLORIDE 96 mmol/L (97-110); CREATININE 0.89 mg/dl (0.44-1.00); GLUCOSE 137 mg/dl (70-220); SODIUM 144 mmol/L (135-144); TOTAL PROTEIN 6.3 g/dl (6.1-8.1)
[2018-04-05 07:36] LABS: ANION GAP 10 (8-16); CARBON DIOXIDE 42 mmol/L (21-31)
[2018-04-05] MEDS: INSULIN ASPART [NOVOLOG] 3 ML PEN SC ×7 (07:51→21:16)
[2018-04-05] MEDS: REPAGLINIDE 1 MG TAB PO ×3 (07:59→17:19)
[2018-04-05] MEDS: INSULIN GLARGINE [LANTus] (100 UNITS/ML) SYG SC (08:04)
[2018-04-05] MEDS: APIXABAN 5 MG TABLET PO ×2 (08:09→21:13)
[2018-04-05] MEDS: predniSONE 20 MG TAB PO (08:09)
[2018-04-05] MEDS: SPIRONOLACTONE 25 MG TAB PO (08:09)
[2018-04-05] MEDS: FUROSEMIDE 40 MG INJ IV (08:10)
[2018-04-05] MEDS: FLUTICASONE/VILANTEROL 100-25 INH (08:10)
[2018-04-05] MEDS: ALBUTEROL/IPRATROPIUM (NEB) 3 ML AMP HHN ×4 (08:24→20:55)
[2018-04-05] MEDS: SOD CHLORIDE 0.9% 0 ML (11:14)
[2018-04-05] MEDS: IOHEXOL 0 ML (11:15)
[2018-04-05] MEDS: DIGOXIN 0.125 MG TAB PO (13:25)
[2018-04-05] MEDS: ATORVASTATIN 40 MG TAB PO (21:13)
[2018-04-06] MEDS: ACCU-CHEK XX ×5 (02:00→21:00)
[2018-04-06] MEDS: LEVOFLOXACIN 500 MG TAB PO (06:11)
[2018-04-06] MEDS: PANTOPRAZOLE 40 MG INJ IV (06:11)
[2018-04-06 06:12] LABS: ADD MAN DIFF? NO
[2018-04-06 06:18] LABS: WHITE BLOOD COUNT 11.4 10^3/ul (4.8-10.8)
[2018-04-06 06:18] LABS: BASOPHILS % 0.3 % (0.0-2.0); EOSINOPHILS # 0.1 10^3/ul (0.0-0.5); EOSINOPHILS % 0.5 % (0.0-7.0); HEMATOCRIT 42.4 % (37.0-47.0); HEMOGLOBIN 12.5 g/dl (12.0-16.0); LYMPHOCYTES # 2.5 10^3/ul (0.8-2.9); LYMPHOCYTES % 21.8 % (15.0-51.0); MEAN CORPUSCULAR HEMOGLOBIN 29.5 pg (29.0-33.0); MEAN CORPUSCULAR HGB CONC 29.5 g/dl (32.0-37.0); MEAN PLATELET VOLUME 9.9 fl (7.4-10.4); MONOCYTE # 0.7 10^3/ul (0.3-0.9); MONOCYTES % 6.4 % (0.0-11.0); NEUTROPHIL # 8.1 10^3/ul (1.6-7.5); NEUTROPHILS % 70.6 % (39.0-77.0); PLATELET COUNT 199 10^3/UL (140-415); RED BLOOD COUNT 4.24 10^6/ul (4.20-5.40); RED CELL DISTRIBUTION WIDTH 17.7 % (11.5-14.5)
[2018-04-06 07:21] LABS: BLOOD UREA NITROGEN 27 mg/dl (7-20); CALCIUM 8.8 mg/dl (8.4-10.2); CHLORIDE 95 mmol/L (97-110); CREATININE 0.82 mg/dl (0.44-1.00); GLUCOSE 137 mg/dl (70-220); MAGNESIUM 2.2 mg/dl (1.7-2.5); POTASSIUM 3.8 mmol/L (3.5-5.1); SODIUM 143 mmol/L (135-144)
[2018-04-06] MEDS: REPAGLINIDE 1 MG TAB PO ×3 (07:34→17:23)
[2018-04-06] MEDS: INSULIN ASPART [NOVOLOG] 3 ML PEN SC ×7 (07:36→21:47)
[2018-04-06 07:37] LABS: ANION GAP 9 (8-16); CARBON DIOXIDE 43 mmol/L (21-31)
[2018-04-06] MEDS: INSULIN GLARGINE [LANTus] (100 UNITS/ML) SYG SC (07:39)
[2018-04-06] MEDS: SPIRONOLACTONE 25 MG TAB PO (08:34)
[2018-04-06] MEDS: predniSONE 20 MG TAB PO (08:34)
[2018-04-06] MEDS: APIXABAN 5 MG TABLET PO ×2 (08:34→21:49)
[2018-04-06] MEDS: FLUTICASONE/VILANTEROL 100-25 INH (08:35)
[2018-04-06] MEDS: FUROSEMIDE 40 MG INJ IV (08:35)
[2018-04-06] MEDS: ALBUTEROL/IPRATROPIUM (NEB) 3 ML AMP HHN ×4 (09:25→21:15)
[2018-04-06] MEDS: DIGOXIN 0.125 MG TAB PO (14:30)
[2018-04-06] MEDS: BUMETANIDE 1 MG INJ IV (17:24)
[2018-04-06] MEDS: ATORVASTATIN 40 MG TAB PO (20:24)
[2018-04-07] MEDS: INSULIN ASPART [NOVOLOG] 3 ML PEN SC ×5 (00:30→11:44)
[2018-04-07] MEDS: ACCU-CHEK XX ×3 (02:47→11:37)
[2018-04-07] MEDS: LEVOFLOXACIN 500 MG TAB PO (05:46)
[2018-04-07] MEDS: BUMETANIDE 1 MG INJ IV (05:46)
[2018-04-07] MEDS: PANTOPRAZOLE 40 MG INJ IV (05:52)
[2018-04-07] MEDS: REPAGLINIDE 1 MG TAB PO ×2 (07:56→11:36)
[2018-04-07] MEDS: INSULIN GLARGINE [LANTus] (100 UNITS/ML) SYG SC (08:15)
[2018-04-07] MEDS: ALBUTEROL/IPRATROPIUM (NEB) 3 ML AMP HHN ×2 (09:18→13:49)
[2018-04-07] MEDS: APIXABAN 5 MG TABLET PO (09:52)
[2018-04-07] MEDS: predniSONE 20 MG TAB PO (09:52)
[2018-04-07] MEDS: FLUTICASONE/VILANTEROL 100-25 INH (09:52)
[2018-04-07] MEDS: SPIRONOLACTONE 25 MG TAB PO (09:52)
[2018-04-07] MEDS: DIGOXIN 0.125 MG TAB PO (12:10)
== END 2018-04-07 16:20 | disposition home or self-care (01) | DRG 871 ==
LOC: E/R 18:57 → TEL 19:48
DX: A41.9 Sepsis, unspecified organism (principal); J96.01 Acute respiratory failure with hypoxia; I50.33 Acute on chronic diastolic (congestive) heart failure; J18.9 Pneumonia, unspecified organism; J96.22 Acute and chronic respiratory failure with hypercapnia; Z68.41 Body mass index [BMI] 40.0-44.9, adult; J44.1 Chronic obstructive pulmonary disease with (acute) exacerbation; J90 Pleural effusion, not elsewhere classified; I48.2 Chronic atrial fibrillation; I11.0 Hypertensive heart disease with heart failure; Z99.81 Dependence on supplemental oxygen; E11.65 Type 2 diabetes mellitus with hyperglycemia; E78.5 Hyperlipidemia, unspecified; G47.33 Obstructive sleep apnea (adult) (pediatric); Y95 Nosocomial condition; E66.9 Obesity, unspecified; Z71.3 Dietary counseling and surveillance; Z79.4 Long term (current) use of insulin; Z79.02 Long term (current) use of antithrombotics/antiplatelets; Z87.891 Personal history of nicotine dependence; Z90.710 Acquired absence of both cervix and uterus
CPT/HCPCS: 71045; 71046; 71250; 80048; 80053; 81001; 82150; 82550; 82553; 82962; 83036; 83605; 83690; 83735; 83880; 84443; 84484; 85025; 85610; 85730; 87040; 87086; 93005; 93306; 94640; 94644; 94664; 97110; 97116; 97161; 97530; 99285-25

== ENCOUNTER 2018-04-20 18:36 | Inpatient (IN) | payer MEDICARE, OTHER ==
[2018-04-20 19:02] LABS: ADD MAN DIFF? NO
[2018-04-20 19:04] LABS: BASOPHILS % 0.3 % (0.0-2.0); EOSINOPHILS # 0.1 10^3/ul (0.0-0.5); EOSINOPHILS % 1.2 % (0.0-7.0); HEMATOCRIT 42.4 % (37.0-47.0); HEMOGLOBIN 12.8 g/dl (12.0-16.0); LYMPHOCYTES # 1.6 10^3/ul (0.8-2.9); MEAN CORPUSCULAR HEMOGLOBIN 29.3 pg (29.0-33.0); MEAN CORPUSCULAR HGB CONC 30.2 g/dl (32.0-37.0); MEAN PLATELET VOLUME 10.6 fl (7.4-10.4); MONOCYTE # 0.7 10^3/ul (0.3-0.9); MONOCYTES % 6.8 % (0.0-11.0); NEUTROPHIL # 7.2 10^3/ul (1.6-7.5); PLATELET COUNT 172 10^3/UL (140-415); RED BLOOD COUNT 4.37 10^6/ul (4.20-5.40); RED CELL DISTRIBUTION WIDTH 16.7 % (11.5-14.5)
[2018-04-20 19:04] LABS: WHITE BLOOD COUNT 9.7 10^3/ul (4.8-10.8)
[2018-04-20] MEDS: IPRATROPIUM (NEB) 0.5 MG/2.5 ML AMP INH (19:10)
[2018-04-20] MEDS: ALBUTEROL 0.5% (NEB) 2.5 MG/0.5 ML AMP INH ×2 (19:11→21:02)
[2018-04-20 19:26] LABS: ANION GAP 7 (5-13); BLOOD UREA NITROGEN 18 mg/dl (7-20); CALCIUM 8.9 mg/dl (8.4-10.2); CARBON DIOXIDE 36 mmol/L (21-31); CHLORIDE 95 mmol/L (97-110); CREATININE 0.74 mg/dl (0.44-1.00); Estimated GFR > 60 mL/min (>60); GLUCOSE 309 mg/dl (70-220); POTASSIUM 4.2 mmol/L (3.5-5.1); SODIUM 138 mmol/L (135-144)
[2018-04-20 19:38] LABS: TROPONIN-I < 0.012 ng/ml (0.000-0.120)
[2018-04-20] MEDS ORDERED: ACETAMINOPHEN 325 MG TAB PO (22:30)
[2018-04-20] MEDS ORDERED: ONDANSETRON 4 MG INJ IV (22:30)
[2018-04-21] MEDS ORDERED: NACL 0.9% 3 ML SYG IV (04:00)
[2018-04-21] MEDS ORDERED: ONDANSETRON 4 MG INJ IV (04:00)
[2018-04-21] MEDS ORDERED: ALBUTEROL/IPRATROPIUM (NEB) 3 ML AMP HHN (04:00)
[2018-04-21] MEDS ORDERED: ACETAMINOPHEN 325 MG TAB PO (04:00)
[2018-04-21] MEDS ORDERED: GLUCAGON 1 MG INJ IM (04:30)
[2018-04-21] MEDS ORDERED: GLUCOSE GEL 15 GRAM TUBE PO ×2 (04:30)
[2018-04-21] MEDS ORDERED: DEXTROSE 50% 50 ML SYRINGE IV ×2 (04:30)
[2018-04-21] MEDS ORDERED: GLUCOSE GEL 15 GRAM TUBE BUCCAL (04:30)
[2018-04-21] MEDS: LEVOFLOXACIN 500MG/D5W (PMX) 100 ML IVPB (06:30)
[2018-04-21] MEDS: FUROSEMIDE 20 MG INJ IV ×2 (07:15→17:58)
[2018-04-21] MEDS: BUMETANIDE 1 MG TAB PO (07:15)
[2018-04-21] MEDS: AMIODARONE 200 MG TAB PO (08:17)
[2018-04-21] MEDS: metFORMIN 500 MG TAB PO ×2 (08:17→17:58)
[2018-04-21] MEDS: METOPROLOL 25 MG TAB PO ×2 (08:21→20:36)
[2018-04-21] MEDS: METHYLPREDNISOLONE 125 MG INJ IV (08:21)
[2018-04-21] MEDS: APIXABAN 5 MG TABLET PO ×2 (08:21→20:35)
[2018-04-21] MEDS: TIOTROPIUM 18 MCG CAPSULE INHA DEV INH (08:22)
[2018-04-21] MEDS: INSULIN GLARGINE [LANTus] (100 UNITS/ML) SYG SC ×2 (08:25→21:01)
[2018-04-21] MEDS: INSULIN ASPART [NOVOLOG] 3 ML PEN SC ×5 (08:25→20:41)
[2018-04-21 08:51] LABS: ADD MAN DIFF? NO
[2018-04-21 08:53] LABS: BASOPHILS % 0.4 % (0.0-2.0); EOSINOPHILS # 0.1 10^3/ul (0.0-0.5); EOSINOPHILS % 0.7 % (0.0-7.0); HEMATOCRIT 43.2 % (37.0-47.0); HEMOGLOBIN 12.7 g/dl (12.0-16.0); LYMPHOCYTES % 12.1 % (15.0-51.0); MEAN CORPUSCULAR HEMOGLOBIN 29.3 pg (29.0-33.0); MEAN CORPUSCULAR HGB CONC 29.4 g/dl (32.0-37.0); MEAN CORPUSCULAR VOLUME 99.5 fl (82.0-101.0); MEAN PLATELET VOLUME 10.3 fl (7.4-10.4); MONOCYTE # 0.6 10^3/ul (0.3-0.9); MONOCYTES % 6.7 % (0.0-11.0); NEUTROPHIL # 6.7 10^3/ul (1.6-7.5); NUCLEATED RED BLOOD CELLS% 0.4 /100WBC (0.0-0.0); PLATELET COUNT 162 10^3/UL (140-415); RED BLOOD COUNT 4.34 10^6/ul (4.20-5.40); RED CELL DISTRIBUTION WIDTH 17.2 % (11.5-14.5)
[2018-04-21 08:53] LABS: WHITE BLOOD COUNT 8.4 10^3/ul (4.8-10.8)
[2018-04-21] MEDS ORDERED: NON-FORMULARY/PATIENT OWN MED (Digoxin* (Digitek*) 0.125 MG) PO (09:00)
[2018-04-21] MEDS ORDERED: BUMETANIDE 1 MG PO (09:00)
[2018-04-21 09:16] LABS: ALANINE AMINOTRANSFERASE 19 IU/L (13-69); ALBUMIN/GLOBULIN RATIO 1.37; ALKALINE PHOSPHATASE 78 IU/L (42-121); ASPARTATE AMINO TRANSFERASE 20 IU/L (15-46); BILIRUBIN,INDIRECT 0.6 mg/dl (0-1.1); BILIRUBIN,TOTAL 0.6 mg/dl (0.2-1.3); BLOOD UREA NITROGEN 15 mg/dl (7-20); CALCIUM 8.7 mg/dl (8.4-10.2); CHLORIDE 91 mmol/L (97-110); CREATININE 0.77 mg/dl (0.44-1.00); Estimated GFR > 60 mL/min (>60); GLUCOSE 308 mg/dl (70-220); SODIUM 141 mmol/L (135-144); TOTAL PROTEIN 6.9 g/dl (6.1-8.1)
[2018-04-21 09:23] LABS: ANION GAP 12 (5-13); CARBON DIOXIDE 38 mmol/L (21-31)
[2018-04-21] MEDS: DIGOXIN 0.125 MG TAB PO (12:52)
[2018-04-21] MEDS: ATORVASTATIN 40 MG TAB PO (20:35)
[2018-04-22] MEDS: ACCU-CHEK XX (02:08)
[2018-04-22 05:43] LABS: ADD MAN DIFF? NO; BASOPHILS % 0.1 % (0.0-2.0); EOSINOPHILS % 0.1 % (0.0-7.0); HEMATOCRIT 41.5 % (37.0-47.0); HEMOGLOBIN 12.4 g/dl (12.0-16.0); LYMPHOCYTES # 1.1 10^3/ul (0.8-2.9); LYMPHOCYTES % 10.9 % (15.0-51.0); MEAN CORPUSCULAR HEMOGLOBIN 29.2 pg (29.0-33.0); MEAN CORPUSCULAR HGB CONC 29.9 g/dl (32.0-37.0); MEAN CORPUSCULAR VOLUME 97.9 fl (82.0-101.0); MEAN PLATELET VOLUME 10.6 fl (7.4-10.4); MONOCYTE # 0.7 10^3/ul (0.3-0.9); MONOCYTES % 6.5 % (0.0-11.0); NEUTROPHIL # 8.2 10^3/ul (1.6-7.5); NEUTROPHILS % 81.7 % (39.0-77.0); PLATELET COUNT 168 10^3/UL (140-415); RED BLOOD COUNT 4.24 10^6/ul (4.20-5.40)
[2018-04-22] MEDS: LEVOFLOXACIN 500MG/D5W (PMX) 100 ML IVPB (06:19)
[2018-04-22] MEDS: BUMETANIDE 1 MG TAB PO (06:19)
[2018-04-22 06:21] LABS: BLOOD UREA NITROGEN 27 mg/dl (7-20); CALCIUM 9.2 mg/dl (8.4-10.2); CHLORIDE 91 mmol/L (97-110); CREATININE 0.88 mg/dl (0.44-1.00); Estimated GFR > 60 mL/min (>60); GLUCOSE 240 mg/dl (70-220); MAGNESIUM 1.8 mg/dl (1.7-2.5); PHOSPHORUS 3.9 mg/dl (2.5-4.9); POTASSIUM 4.3 mmol/L (3.5-5.1); SODIUM 140 mmol/L (135-144)
[2018-04-22] MEDS: FUROSEMIDE 20 MG INJ IV (06:23)
[2018-04-22 06:29] LABS: ANION GAP 10 (5-13)
[2018-04-22 06:31] LABS: CARBON DIOXIDE 39 mmol/L (21-31)
[2018-04-22] MEDS: metFORMIN 500 MG TAB PO (08:45)
[2018-04-22] MEDS: APIXABAN 5 MG TABLET PO (08:50)
[2018-04-22] MEDS: AMIODARONE 200 MG TAB PO (08:50)
[2018-04-22] MEDS: TIOTROPIUM 18 MCG CAPSULE INHA DEV INH ×2 (08:52→12:52)
[2018-04-22] MEDS: INSULIN ASPART [NOVOLOG] 3 ML PEN SC ×4 (08:54→13:35)
[2018-04-22] MEDS: METOPROLOL 25 MG TAB PO (08:56)
[2018-04-22] MEDS: METHYLPREDNISOLONE 125 MG INJ IV (08:57)
[2018-04-22] MEDS: DIGOXIN 0.125 MG TAB PO (13:30)
== END 2018-04-22 17:15 | DRG 291 ==
LOC: 2NE 22:15 → E/R 18:36
DX: I11.0 Hypertensive heart disease with heart failure (principal); J96.21 Acute and chronic respiratory failure with hypoxia; J96.22 Acute and chronic respiratory failure with hypercapnia; J44.1 Chronic obstructive pulmonary disease with (acute) exacerbation; Z68.41 Body mass index [BMI] 40.0-44.9, adult; I50.33 Acute on chronic diastolic (congestive) heart failure; E11.65 Type 2 diabetes mellitus with hyperglycemia; E78.5 Hyperlipidemia, unspecified; E66.01 Morbid (severe) obesity due to excess calories; I48.2 Chronic atrial fibrillation; G47.33 Obstructive sleep apnea (adult) (pediatric); Z90.710 Acquired absence of both cervix and uterus; Z90.79 Acquired absence of other genital organ(s); Z90.722 Acquired absence of ovaries, bilateral; Z99.81 Dependence on supplemental oxygen; Z85.3 Personal history of malignant neoplasm of breast; J20.9 Acute bronchitis, unspecified
CPT/HCPCS: 36415; 71045; 80048; 80053; 82962; 83735; 84100; 84484; 85025; 93005; 94644; 94645; 99285-25

== ENCOUNTER 2018-07-02 17:13 | Inpatient (IN) | payer MEDICARE, OTHER ==
[2018-07-02] MEDS: IPRATROPIUM (NEB) 0.5 MG/2.5 ML AMP NEB (17:45)
[2018-07-02] MEDS: ALBUTEROL 0.5% (NEB) 2.5 MG/0.5 ML AMP INH (17:45)
[2018-07-02 17:49] LABS: ADD MAN DIFF? NO
[2018-07-02 17:52] LABS: BASOPHILS % 0.2 % (0.0-2.0); EOSINOPHILS # 0.2 10^3/ul (0.0-0.5); EOSINOPHILS % 1.3 % (0.0-7.0); HEMATOCRIT 40.8 % (37.0-47.0); LYMPHOCYTES # 1.3 10^3/ul (0.8-2.9); LYMPHOCYTES % 10.9 % (15.0-51.0); MEAN CORPUSCULAR HEMOGLOBIN 29.1 pg (29.0-33.0); MEAN CORPUSCULAR HGB CONC 29.4 g/dl (32.0-37.0); MEAN CORPUSCULAR VOLUME 98.8 fl (82.0-101.0); MEAN PLATELET VOLUME 10.1 fl (7.4-10.4); MONOCYTE # 0.8 10^3/ul (0.3-0.9); MONOCYTES % 6.8 % (0.0-11.0); NEUTROPHIL # 9.8 10^3/ul (1.6-7.5); NEUTROPHILS % 80.1 % (39.0-77.0); PLATELET COUNT 241 10^3/UL (140-415); RED BLOOD COUNT 4.13 10^6/ul (4.20-5.40); RED CELL DISTRIBUTION WIDTH 17.3 % (11.5-14.5)
[2018-07-02 17:52] LABS: WHITE BLOOD COUNT 12.2 10^3/ul (4.8-10.8)
[2018-07-02] MEDS: SODIUM CHLORIDE 0.9% 1L BAG IV* (17:55)
[2018-07-02] MEDS: DEXAMETHASONE 10 MG/ML 1 ML INJ IV (17:55)
[2018-07-02] MEDS: LEVOFLOXACIN 750MG/D5W (PMX) 150 ML IVPB (17:56)
[2018-07-02 18:11] LABS: INR 1.04; PROTIME 13.7 Sec (11.9-14.9); PT RATIO 1.1
[2018-07-02 18:13] LABS: PARTIAL THROMBOPLASTIN TIME 35.2 Sec (23.0-35.0)
[2018-07-02 18:14] LABS: MODE HFNC; MetHgb Venous 0.2 %; Sample Type Blood venous; Site VENOUS LINE; Venous COHb 1.2 %; Venous Fraction OxyHgb 33.9 %; Venous Oxygen Sat 34.4 mmHG (55.0-75.0); Venous Total Hemglobin 12.7 g/dl
[2018-07-02 18:29] LABS: BLOOD UREA NITROGEN 22 mg/dl (7-20); CALCIUM 9.1 mg/dl (8.4-10.2); CHLORIDE 87 mmol/L (97-110); CREATININE 0.79 mg/dl (0.44-1.00); Estimated GFR > 60 mL/min (>60); GLUCOSE 155 mg/dl (70-220); POTASSIUM 4.7 mmol/L (3.5-5.1); SODIUM 137 mmol/L (135-144)
[2018-07-02 18:36] LABS: ANION GAP 12 (5-13)
[2018-07-02 18:40] LABS: CARBON DIOXIDE 38 mmol/L (21-31)
[2018-07-02 18:41] LABS: TROPONIN-I < 0.012 ng/ml (0.000-0.120)
[2018-07-02] MEDS: LORAZEPAM 2 MG INJ IV ×2 (18:44→21:28)
[2018-07-02] MEDS ORDERED: ONDANSETRON 4 MG INJ IV (20:00)
[2018-07-02 20:22] LABS: Blood Gas IEPAP 18/6; Blood Gas PS 12; MODE MASK - BIPAP; MetHgb Venous 0.1 %; Sample Type Blood venous; Site VENOUS LINE; Venous COHb 1.8 %; Venous Fraction OxyHgb 59.7 %; Venous Oxygen Sat 60.9 mmHG (55.0-75.0); Venous Total Hemglobin 12.6 g/dl
[2018-07-02] MEDS: AMIODARONE 200 MG TAB PO (20:51)
[2018-07-02] MEDS ORDERED: HEPARIN 5,000 UNIT/1 ML VIAL SC (21:00)
[2018-07-02] MEDS: ALBUTEROL/IPRATROPIUM (NEB) 3 ML AMP NEB (21:18)
[2018-07-02] MEDS: LINAGLIPTIN 5 MG TABLET PO (23:08)
[2018-07-02] MEDS: PRIMIDONE 50 MG TAB PO (23:08)
[2018-07-02] MEDS: APIXABAN 5 MG TABLET PO (23:08)
[2018-07-02] MEDS: ATORVASTATIN 40 MG TAB PO (23:08)
[2018-07-02 23:10] LABS: LACTIC ACID 1.8 mmol/L (0.5-2.0)
[2018-07-03 03:17] LABS: AADO2 Venous 567.6 mmHg; MODE HFNC; MetHgb Venous 0.2 %; Sample Type Blood venous; Site VENOUS LINE; Venous Oxygen Sat 88.1 mmHG (55.0-75.0); Venous Total Hemglobin 13.2 g/dl
[2018-07-03 05:29] LABS: WHITE BLOOD COUNT 10.4 10^3/ul (4.8-10.8)
[2018-07-03 05:29] LABS: ABNORMAL IP MESSAGE 1; HEMATOCRIT 39.4 % (37.0-47.0); MEAN CORPUSCULAR HEMOGLOBIN 29.6 pg (29.0-33.0); MEAN CORPUSCULAR HGB CONC 30.5 g/dl (32.0-37.0); MEAN PLATELET VOLUME 10.4 fl (7.4-10.4); PLATELET COUNT 215 10^3/UL (140-415); RED BLOOD COUNT 4.06 10^6/ul (4.20-5.40); RED CELL DISTRIBUTION WIDTH 17.1 % (11.5-14.5)
[2018-07-03 05:32] LABS: POSITIVE DIFF @See below
[2018-07-03 05:34] LABS: ADD MAN DIFF? YES
[2018-07-03] MEDS: BUMETANIDE 1 MG TAB PO (05:41)
[2018-07-03 05:49] LABS: HEMOGLOBIN A1C 7.7 % (0-5.9)
[2018-07-03 06:00] LABS: ALANINE AMINOTRANSFERASE 43 IU/L (13-69); ALBUMIN 3.9 g/dl (3.3-4.9); ALBUMIN/GLOBULIN RATIO 1.14; ALKALINE PHOSPHATASE 158 IU/L (42-121); ANION GAP 8 (5-13); ASPARTATE AMINO TRANSFERASE 38 IU/L (15-46); BILIRUBIN,INDIRECT 0.5 mg/dl (0-1.1); BILIRUBIN,TOTAL 0.5 mg/dl (0.2-1.3); BLOOD UREA NITROGEN 21 mg/dl (7-20); CALCIUM 8.8 mg/dl (8.4-10.2); CARBON DIOXIDE 40 mmol/L (21-31); CHLORIDE 89 mmol/L (97-110); CREATININE 0.79 mg/dl (0.44-1.00); Estimated GFR > 60 mL/min (>60); GLUCOSE 206 mg/dl (70-220); SODIUM 137 mmol/L (135-144); TOTAL PROTEIN 7.3 g/dl (6.1-8.1)
[2018-07-03] MEDS ORDERED: NON-FORMULARY/PATIENT OWN MED (Bumetanide* 2 MG) PO (09:00)
[2018-07-03 09:04] LABS: ANISOCYTOSIS 2+ (0-0); BAND NEUTROPHILS #M 0.5 10^3/ul (0.0-0.6); BAND NEUTROPHILS % (M) 5 % (0-4); LYMPHOCYTES #M 0.7 10^3/ul (0.8-2.9); LYMPHOCYTES % (M) 7 % (15-51); MICROCYTOSIS 1+ (0-0); MONOCYTE #M 0.1 10^3/ul (0.3-0.9); MONOCYTES % (M) 1 % (0-11); PLATELET ESTIMATE NORMAL; POIKILOCYTOSIS 1+ (0-0); POLYCHROMASIA 3+ (0-0); SEG NEUT #M 9.1 10^3/ul (1.6-7.5); SEGMENTED NEUTROPHILS (M) % 87 % (39-77)
[2018-07-03] MEDS: AMIODARONE 200 MG TAB PO (09:37)
[2018-07-03] MEDS: APIXABAN 5 MG TABLET PO ×2 (09:37→20:10)
[2018-07-03] MEDS: TIOTROPIUM 18 MCG CAPSULE INHA DEV INH (09:37)
[2018-07-03] MEDS ORDERED: GUAIFENESIN 20 MG/ML 5ML CUP PO (10:00)
[2018-07-03] MEDS ORDERED: DEXTROSE 50% 50 ML SYRINGE IV ×2 (10:30)
[2018-07-03] MEDS ORDERED: GLUCAGON 1 MG INJ IM (10:30)
[2018-07-03] MEDS ORDERED: GLUCOSE GEL 15 GRAM TUBE BUCCAL (10:30)
[2018-07-03] MEDS ORDERED: GLUCOSE GEL 15 GRAM TUBE PO ×2 (10:30)
[2018-07-03] MEDS: BUMETANIDE 1 MG INJ IV ×2 (10:37→18:33)
[2018-07-03 10:57] LABS: D-DIMER 1248.74 ng/ml (<460)
[2018-07-03 11:01] LABS: B-TYPE NATRIURETIC PEPTIDE 2580 PG/ML (0-125)
[2018-07-03] MEDS: DIGOXIN 0.125 MG TAB PO (12:33)
[2018-07-03] MEDS: INSULIN ASPART [NOVOLOG] 3 ML PEN SC ×3 (12:44→20:18)
[2018-07-03] MEDS: ATORVASTATIN 40 MG TAB PO (20:09)
[2018-07-03] MEDS: LINAGLIPTIN 5 MG TABLET PO (20:10)
[2018-07-03] MEDS: PRIMIDONE 50 MG TAB PO (20:18)
[2018-07-04] MEDS: ACCU-CHEK XX (02:00)
[2018-07-04] MEDS: BUMETANIDE 1 MG INJ IV ×2 (05:23→18:16)
[2018-07-04 05:30] LABS: ADD MAN DIFF? NO
[2018-07-04 05:31] LABS: MODE Vapotherm; MetHgb Venous 0.1 %; Sample Type Blood venous; Site VENOUS LINE; Venous COHb 1.1 %; Venous Fraction OxyHgb 84.2 %; Venous Oxygen Sat 85.2 mmHG (55.0-75.0); Venous Total Hemglobin 13.1 g/dl
[2018-07-04 05:38] LABS: BASOPHIL # 0.1 10^3/ul (0.0-0.1); BASOPHILS % 0.6 % (0.0-2.0); EOSINOPHILS # 0.2 10^3/ul (0.0-0.5); EOSINOPHILS % 1.7 % (0.0-7.0); HEMATOCRIT 38.6 % (37.0-47.0); HEMOGLOBIN 11.7 g/dl (12.0-16.0); LYMPHOCYTES # 1.5 10^3/ul (0.8-2.9); LYMPHOCYTES % 14.2 % (15.0-51.0); MEAN CORPUSCULAR HEMOGLOBIN 29.3 pg (29.0-33.0); MEAN CORPUSCULAR HGB CONC 30.3 g/dl (32.0-37.0); MEAN CORPUSCULAR VOLUME 96.7 fl (82.0-101.0); MEAN PLATELET VOLUME 9.8 fl (7.4-10.4); MONOCYTE # 0.9 10^3/ul (0.3-0.9); MONOCYTES % 8.2 % (0.0-11.0); NEUTROPHILS % 74.6 % (39.0-77.0); PLATELET COUNT 233 10^3/UL (140-415); RED BLOOD COUNT 3.99 10^6/ul (4.20-5.40); RED CELL DISTRIBUTION WIDTH 17.1 % (11.5-14.5)
[2018-07-04 05:38] LABS: WHITE BLOOD COUNT 10.7 10^3/ul (4.8-10.8)
[2018-07-04 06:10] LABS: ALANINE AMINOTRANSFERASE 35 IU/L (13-69); ALBUMIN 3.5 g/dl (3.3-4.9); ALBUMIN/GLOBULIN RATIO 1.09; ALKALINE PHOSPHATASE 111 IU/L (42-121); ASPARTATE AMINO TRANSFERASE 25 IU/L (15-46); BILIRUBIN,INDIRECT 0.2 mg/dl (0-1.1); BILIRUBIN,TOTAL 0.2 mg/dl (0.2-1.3); BLOOD UREA NITROGEN 31 mg/dl (7-20); CALCIUM 8.8 mg/dl (8.4-10.2); CHLORIDE 86 mmol/L (97-110); CREATININE 0.89 mg/dl (0.44-1.00); Estimated GFR > 60 mL/min (>60); GLUCOSE 140 mg/dl (70-220); POTASSIUM 3.9 mmol/L (3.5-5.1); SODIUM 139 mmol/L (135-144); TOTAL PROTEIN 6.7 g/dl (6.1-8.1)
[2018-07-04 06:16] LABS: PHOSPHORUS 4.2 mg/dl (2.5-4.9)
[2018-07-04 06:53] LABS: ANION GAP 11 (5-13); CARBON DIOXIDE 42 mmol/L (21-31)
[2018-07-04] MEDS: INSULIN ASPART [NOVOLOG] 3 ML PEN SC ×4 (07:35→20:19)
[2018-07-04] MEDS: AMIODARONE 200 MG TAB PO (09:23)
[2018-07-04] MEDS: LEVOFLOXACIN 500MG/D5W (PMX) 100 ML IVPB (09:24)
[2018-07-04] MEDS: APIXABAN 5 MG TABLET PO ×2 (09:24→20:12)
[2018-07-04] MEDS: TIOTROPIUM 18 MCG CAPSULE INHA DEV INH (09:25)
[2018-07-04] MEDS: CEFEPIME 1GM/50 ML (PMX) 50 ML IVPB ×2 (10:36→20:15)
[2018-07-04] MEDS: DIGOXIN 0.125 MG TAB PO (13:06)
[2018-07-04] MEDS: ATORVASTATIN 40 MG TAB PO (20:12)
[2018-07-04] MEDS: METOPROLOL 25 MG TAB PO (20:13)
[2018-07-04] MEDS: LINAGLIPTIN 5 MG TABLET PO (20:15)
[2018-07-04] MEDS: PRIMIDONE 50 MG TAB PO (20:15)
[2018-07-05] MEDS: ACCU-CHEK XX (02:00)
[2018-07-05] MEDS: BUMETANIDE 1 MG INJ IV ×3 (06:03→20:45)
[2018-07-05] MEDS: METOPROLOL 25 MG TAB PO ×2 (08:10→20:44)
[2018-07-05] MEDS: TIOTROPIUM 18 MCG CAPSULE INHA DEV INH (08:10)
[2018-07-05] MEDS: LEVOFLOXACIN 500MG/D5W (PMX) 100 ML IVPB (08:11)
[2018-07-05] MEDS: CEFEPIME 1GM/50 ML (PMX) 50 ML IVPB ×2 (08:11→20:43)
[2018-07-05] MEDS: AMIODARONE 200 MG TAB PO (08:11)
[2018-07-05] MEDS: APIXABAN 5 MG TABLET PO ×2 (08:11→20:44)
[2018-07-05] MEDS: INSULIN ASPART [NOVOLOG] 3 ML PEN SC ×4 (08:19→20:54)
[2018-07-05 10:59] LABS: ADD MAN DIFF? NO
[2018-07-05 11:07] LABS: WHITE BLOOD COUNT 9.9 10^3/ul (4.8-10.8)
[2018-07-05 11:07] LABS: BASOPHILS % 0.4 % (0.0-2.0); EOSINOPHILS # 0.2 10^3/ul (0.0-0.5); EOSINOPHILS % 2.1 % (0.0-7.0); HEMATOCRIT 41.1 % (37.0-47.0); HEMOGLOBIN 12.4 g/dl (12.0-16.0); LYMPHOCYTES % 9.9 % (15.0-51.0); MEAN CORPUSCULAR HEMOGLOBIN 29.3 pg (29.0-33.0); MEAN CORPUSCULAR HGB CONC 30.2 g/dl (32.0-37.0); MEAN CORPUSCULAR VOLUME 97.2 fl (82.0-101.0); MEAN PLATELET VOLUME 9.7 fl (7.4-10.4); MONOCYTE # 0.8 10^3/ul (0.3-0.9); MONOCYTES % 8.1 % (0.0-11.0); NEUTROPHIL # 7.8 10^3/ul (1.6-7.5); NEUTROPHILS % 78.9 % (39.0-77.0); PLATELET COUNT 225 10^3/UL (140-415); RED BLOOD COUNT 4.23 10^6/ul (4.20-5.40); RED CELL DISTRIBUTION WIDTH 17.2 % (11.5-14.5)
[2018-07-05 11:19] LABS: ALANINE AMINOTRANSFERASE 29 IU/L (13-69); ALBUMIN 3.5 g/dl (3.3-4.9); ALBUMIN/GLOBULIN RATIO 1.09; ALKALINE PHOSPHATASE 90 IU/L (42-121); ASPARTATE AMINO TRANSFERASE 21 IU/L (15-46); BILIRUBIN,INDIRECT 0.2 mg/dl (0-1.1); BILIRUBIN,TOTAL 0.2 mg/dl (0.2-1.3); BLOOD UREA NITROGEN 29 mg/dl (7-20); CALCIUM 8.5 mg/dl (8.4-10.2); CHLORIDE 83 mmol/L (97-110); CREATININE 0.86 mg/dl (0.44-1.00); Estimated GFR > 60 mL/min (>60); GLUCOSE 182 mg/dl (70-220); POTASSIUM 3.8 mmol/L (3.5-5.1); SODIUM 139 mmol/L (135-144); TOTAL PROTEIN 6.7 g/dl (6.1-8.1)
[2018-07-05 11:31] LABS: ANION GAP 7 (5-13)
[2018-07-05 11:35] LABS: CARBON DIOXIDE 49 mmol/L (21-31)
[2018-07-05] MEDS: DIGOXIN 0.125 MG TAB PO (12:03)
[2018-07-05] MEDS: ATORVASTATIN 40 MG TAB PO (20:44)
[2018-07-05] MEDS: LINAGLIPTIN 5 MG TABLET PO (20:44)
[2018-07-05] MEDS: PRIMIDONE 50 MG TAB PO (20:45)
[2018-07-06] MEDS: ACCU-CHEK XX (02:00)
[2018-07-06 06:58] LABS: ADD MAN DIFF? NO
[2018-07-06 07:05] LABS: BASOPHILS % 0.4 % (0.0-2.0); EOSINOPHILS # 0.2 10^3/ul (0.0-0.5); LYMPHOCYTES # 1.1 10^3/ul (0.8-2.9); LYMPHOCYTES % 13.7 % (15.0-51.0); MEAN CORPUSCULAR HGB CONC 29.5 g/dl (32.0-37.0); MEAN CORPUSCULAR VOLUME 98.2 fl (82.0-101.0); MEAN PLATELET VOLUME 9.7 fl (7.4-10.4); MONOCYTE # 0.6 10^3/ul (0.3-0.9); MONOCYTES % 7.4 % (0.0-11.0); NEUTROPHIL # 5.9 10^3/ul (1.6-7.5); PLATELET COUNT 219 10^3/UL (140-415); RED BLOOD COUNT 4.48 10^6/ul (4.20-5.40)
[2018-07-06 07:05] LABS: WHITE BLOOD COUNT 7.8 10^3/ul (4.8-10.8)
[2018-07-06 07:26] LABS: BLOOD UREA NITROGEN 25 mg/dl (7-20); CALCIUM 8.4 mg/dl (8.4-10.2); CHLORIDE 82 mmol/L (97-110); CREATININE 0.83 mg/dl (0.44-1.00); Estimated GFR > 60 mL/min (>60); GLUCOSE 170 mg/dl (70-220); MAGNESIUM 1.9 mg/dl (1.7-2.5); PHOSPHORUS 4.1 mg/dl (2.5-4.9); POTASSIUM 4.3 mmol/L (3.5-5.1); SODIUM 140 mmol/L (135-144)
[2018-07-06 07:35] LABS: ANION GAP 8 (5-13); CARBON DIOXIDE 50 mmol/L (21-31)
[2018-07-06] MEDS: AMIODARONE 200 MG TAB PO (07:49)
[2018-07-06] MEDS: APIXABAN 5 MG TABLET PO ×2 (07:49→21:12)
[2018-07-06] MEDS: TIOTROPIUM 18 MCG CAPSULE INHA DEV INH (07:49)
[2018-07-06] MEDS: METOPROLOL 25 MG TAB PO ×2 (07:49→21:13)
[2018-07-06] MEDS: LEVOFLOXACIN 500MG/D5W (PMX) 100 ML IVPB (07:50)
[2018-07-06] MEDS: BUMETANIDE 1 MG INJ IV ×3 (07:50→17:09)
[2018-07-06] MEDS: CEFEPIME 1GM/50 ML (PMX) 50 ML IVPB ×2 (07:50→21:11)
[2018-07-06] MEDS: INSULIN ASPART [NOVOLOG] 3 ML PEN SC ×4 (08:04→20:20)
[2018-07-06] MEDS: DIGOXIN 0.125 MG TAB PO (12:15)
[2018-07-06] MEDS: PRIMIDONE 50 MG TAB PO (21:12)
[2018-07-06] MEDS: ATORVASTATIN 40 MG TAB PO (21:12)
[2018-07-06] MEDS: LINAGLIPTIN 5 MG TABLET PO (21:12)
[2018-07-07] MEDS: ACCU-CHEK XX (02:18)
[2018-07-07 05:39] LABS: ADD MAN DIFF? NO
[2018-07-07 05:41] LABS: BASOPHILS % 0.4 % (0.0-2.0); EOSINOPHILS # 0.2 10^3/ul (0.0-0.5); EOSINOPHILS % 2.3 % (0.0-7.0); HEMATOCRIT 41.5 % (37.0-47.0); HEMOGLOBIN 12.5 g/dl (12.0-16.0); LYMPHOCYTES # 1.4 10^3/ul (0.8-2.9); LYMPHOCYTES % 14.2 % (15.0-51.0); MEAN CORPUSCULAR HEMOGLOBIN 29.2 pg (29.0-33.0); MEAN CORPUSCULAR HGB CONC 30.1 g/dl (32.0-37.0); MEAN PLATELET VOLUME 9.7 fl (7.4-10.4); MONOCYTE # 0.8 10^3/ul (0.3-0.9); MONOCYTES % 7.8 % (0.0-11.0); NEUTROPHIL # 7.2 10^3/ul (1.6-7.5); NEUTROPHILS % 74.5 % (39.0-77.0); PLATELET COUNT 216 10^3/UL (140-415); RED BLOOD COUNT 4.28 10^6/ul (4.20-5.40)
[2018-07-07 05:41] LABS: WHITE BLOOD COUNT 9.6 10^3/ul (4.8-10.8)
[2018-07-07 06:05] LABS: BLOOD UREA NITROGEN 23 mg/dl (7-20); CALCIUM 8.6 mg/dl (8.4-10.2); CHLORIDE 86 mmol/L (97-110); Estimated GFR > 60 mL/min (>60); GLUCOSE 194 mg/dl (70-220); POTASSIUM 3.7 mmol/L (3.5-5.1); SODIUM 139 mmol/L (135-144)
[2018-07-07 06:18] LABS: ANION GAP 10 (5-13); CARBON DIOXIDE 43 mmol/L (21-31)
[2018-07-07] MEDS: BUMETANIDE 1 MG INJ IV ×2 (06:25→17:23)
[2018-07-07] MEDS: INSULIN ASPART [NOVOLOG] 3 ML PEN SC ×4 (07:51→21:01)
[2018-07-07] MEDS: TIOTROPIUM 18 MCG CAPSULE INHA DEV INH (08:46)
[2018-07-07] MEDS: APIXABAN 5 MG TABLET PO ×2 (08:47→20:40)
[2018-07-07] MEDS: AMIODARONE 200 MG TAB PO (08:47)
[2018-07-07] MEDS: METOPROLOL 25 MG TAB PO ×2 (08:48→20:42)
[2018-07-07] MEDS: CEFEPIME 1GM/50 ML (PMX) 50 ML IVPB ×2 (08:48→20:40)
[2018-07-07] MEDS: POTASSIUM CHLORIDE 20 MEQ POWDER FOR ORAL SOLN PO (08:52)
[2018-07-07] MEDS: LEVOFLOXACIN 500MG/D5W (PMX) 100 ML IVPB (09:43)
[2018-07-07] MEDS: DIGOXIN 0.125 MG TAB PO (13:13)
[2018-07-07] MEDS: ATORVASTATIN 40 MG TAB PO (20:40)
[2018-07-07] MEDS: PRIMIDONE 50 MG TAB PO (20:40)
[2018-07-07] MEDS: LINAGLIPTIN 5 MG TABLET PO (20:40)
[2018-07-08] MEDS: ACCU-CHEK XX (02:59)
[2018-07-08 05:50] LABS: ADD MAN DIFF? NO
[2018-07-08 05:57] LABS: BASOPHILS % 0.5 % (0.0-2.0); EOSINOPHILS # 0.2 10^3/ul (0.0-0.5); EOSINOPHILS % 2.4 % (0.0-7.0); HEMATOCRIT 39.3 % (37.0-47.0); HEMOGLOBIN 11.9 g/dl (12.0-16.0); LYMPHOCYTES # 1.2 10^3/ul (0.8-2.9); LYMPHOCYTES % 14.4 % (15.0-51.0); MEAN CORPUSCULAR HGB CONC 30.3 g/dl (32.0-37.0); MEAN CORPUSCULAR VOLUME 95.9 fl (82.0-101.0); MEAN PLATELET VOLUME 9.8 fl (7.4-10.4); MONOCYTE # 0.6 10^3/ul (0.3-0.9); MONOCYTES % 7.4 % (0.0-11.0); NEUTROPHIL # 6.4 10^3/ul (1.6-7.5); NEUTROPHILS % 74.3 % (39.0-77.0); PLATELET COUNT 199 10^3/UL (140-415); RED CELL DISTRIBUTION WIDTH 16.7 % (11.5-14.5)
[2018-07-08 05:57] LABS: WHITE BLOOD COUNT 8.6 10^3/ul (4.8-10.8)
[2018-07-08] MEDS: BUMETANIDE 1 MG INJ IV (06:05)
[2018-07-08 06:46] LABS: BLOOD UREA NITROGEN 22 mg/dl (7-20); CALCIUM 8.7 mg/dl (8.4-10.2); CHLORIDE 85 mmol/L (97-110); Estimated GFR > 60 mL/min (>60); GLUCOSE 194 mg/dl (70-220); PHOSPHORUS 3.4 mg/dl (2.5-4.9); SODIUM 138 mmol/L (135-144)
[2018-07-08 07:02] LABS: ANION GAP 10 (5-13); POTASSIUM 3.6 mmol/L (3.5-5.1)
[2018-07-08 07:04] LABS: CARBON DIOXIDE 43 mmol/L (21-31)
[2018-07-08] MEDS: INSULIN ASPART [NOVOLOG] 3 ML PEN SC ×2 (08:21→12:08)
[2018-07-08] MEDS: TIOTROPIUM 18 MCG CAPSULE INHA DEV INH (09:00)
[2018-07-08] MEDS: APIXABAN 5 MG TABLET PO (09:43)
[2018-07-08] MEDS: METOPROLOL 25 MG TAB PO (09:44)
[2018-07-08] MEDS: CEFEPIME 1GM/50 ML (PMX) 50 ML IVPB (09:44)
[2018-07-08] MEDS: AMIODARONE 200 MG TAB PO (09:44)
[2018-07-08] MEDS: POTASSIUM CHLORIDE 20 MEQ POWDER FOR ORAL SOLN PO (09:45)
[2018-07-08] MEDS: LEVOFLOXACIN 500MG/D5W (PMX) 100 ML IVPB (10:34)
[2018-07-08] MEDS: DIGOXIN 0.125 MG TAB PO (14:03)
[2018-07-08] MEDS ORDERED: BUMETANIDE 1 MG TAB PO (18:00)
== END 2018-07-08 16:30 | disposition home or self-care (01) | DRG 193 ==
LOC: 6WM 07-04 13:40 → E/R 17:13 → ICU 19:37
PROC: 5A09357 Assistance with Respiratory Ventilation, Less than 24 Consecutive Hours, Continuous Positive Airway Pressure (ICD-10-PCS; principal; 2018-07-02)
DX: J18.1 Lobar pneumonia, unspecified organism (principal); J96.21 Acute and chronic respiratory failure with hypoxia; I50.33 Acute on chronic diastolic (congestive) heart failure; J96.22 Acute and chronic respiratory failure with hypercapnia; J44.1 Chronic obstructive pulmonary disease with (acute) exacerbation; Z68.43 Body mass index [BMI] 50.0-59.9, adult; J44.0 Chronic obstructive pulmonary disease with (acute) lower respiratory infection; E66.2 Morbid (severe) obesity with alveolar hypoventilation; E11.65 Type 2 diabetes mellitus with hyperglycemia; I11.0 Hypertensive heart disease with heart failure; E78.5 Hyperlipidemia, unspecified; I48.2 Chronic atrial fibrillation; I27.20 Pulmonary hypertension, unspecified; Z79.01 Long term (current) use of anticoagulants
CPT/HCPCS: 36415; 71045; 80048; 80053; 82803; 82962; 83036; 83605; 83735; 83880; 84100; 84484; 85025; 85378; 85610; 85730; 87040; 87081; 93005; 93970; 94644; 94660; 94664; 96374; 96375; 97116; 97161; 97166; 97530; 99285-25

== ENCOUNTER 2018-07-26 01:16 | Inpatient (IN) | payer MEDICARE, OTHER ==
[2018-07-26 02:11] LABS: ADD MAN DIFF? NO
[2018-07-26 02:12] LABS: WHITE BLOOD COUNT 13.1 10^3/ul (4.8-10.8)
[2018-07-26 02:12] LABS: ABNORMAL IP MESSAGE 1; BASOPHIL # 0.1 10^3/ul (0.0-0.1); BASOPHILS % 0.4 % (0.0-2.0); EOSINOPHILS # 0.2 10^3/ul (0.0-0.5); EOSINOPHILS % 1.5 % (0.0-7.0); HEMATOCRIT 42.2 % (37.0-47.0); LYMPHOCYTES # 1.7 10^3/ul (0.8-2.9); LYMPHOCYTES % 13.2 % (15.0-51.0); MEAN CORPUSCULAR HEMOGLOBIN 28.2 pg (29.0-33.0); MEAN CORPUSCULAR HGB CONC 28.4 g/dl (32.0-37.0); MEAN CORPUSCULAR VOLUME 99.3 fl (82.0-101.0); MEAN PLATELET VOLUME 10.1 fl (7.4-10.4); MONOCYTES % 7.9 % (0.0-11.0); NEUTROPHILS % 76.1 % (39.0-77.0); NUCLEATED RED BLOOD CELLS% 0.2 /100WBC (0.0-0.0); PLATELET COUNT 185 10^3/UL (140-415); RED BLOOD COUNT 4.25 10^6/ul (4.20-5.40); RED CELL DISTRIBUTION WIDTH 16.8 % (11.5-14.5)
[2018-07-26 02:14] LABS: POSITIVE DIFF @See below
[2018-07-26 02:25] LABS: MODE NASAL CANNULA; MetHgb Venous 0.3 %; Sample Type Blood venous; Site VENOUS LINE; Venous COHb 1.4 %; Venous Fraction OxyHgb 66.8 %; Venous Total Hemglobin 12.9 g/dl
[2018-07-26 02:32] LABS: PROTIME 12.3 Sec (11.9-14.9)
[2018-07-26 02:33] LABS: PARTIAL THROMBOPLASTIN TIME 33.1 Sec (23.0-35.0)
[2018-07-26 02:34] LABS: BLOOD UREA NITROGEN 25 mg/dl (7-20); CALCIUM 8.5 mg/dl (8.4-10.2); CHLORIDE 84 mmol/L (97-110); CREATININE 0.93 mg/dl (0.44-1.00); Estimated GFR > 60 mL/min (>60); GLUCOSE 149 mg/dl (70-220); POTASSIUM 4.4 mmol/L (3.5-5.1); SODIUM 139 mmol/L (135-144)
[2018-07-26 02:44] LABS: ANION GAP 15 (5-13); CARBON DIOXIDE 40 mmol/L (21-31)
[2018-07-26 02:49] LABS: TROPONIN-I 0.016 ng/ml (0.000-0.120)
[2018-07-26] MEDS: LEVOFLOXACIN 750MG/D5W (PMX) 150 ML IVPB (03:38)
[2018-07-26] MEDS: METHYLPREDNISOLONE 125 MG INJ IV (03:38)
[2018-07-26] MEDS: SODIUM CHLORIDE 0.9% 1L BAG IV* (03:38)
[2018-07-26] MEDS: IPRATROPIUM (NEB) 0.5 MG/2.5 ML AMP INH (04:17)
[2018-07-26] MEDS: ALBUTEROL 0.5% (NEB) 2.5 MG/0.5 ML AMP INH (04:18)
[2018-07-26 04:55] LABS: ADD UMIC YES; UR ASCORBIC ACID NEGATIVE (NEGATIVE); UR BACTERIA FEW /HPF (NONE SEEN); UR BILIRUBIN (Dip) NEGATIVE (NEGATIVE); UR BLOOD (Dip) 1+ mg/dL (NEGATIVE); UR CLARITY SLIGHTLY CLOUDY (CLEAR); UR COLOR YELLOW (YELLOW); UR GLUCOSE (Dip) 3+ mg/dL (NEGATIVE); UR KETONES (Dip) NEGATIVE (NEGATIVE); UR LEUKOCYTE ESTERASE (Dip) TRACE Leu/ul (NEGATIVE); UR NITRITE (Dip) NEGATIVE (NEGATIVE); UR RBC 2 /HPF (0-5); UR SPECIFIC GRAVITY (Dip) 1.026 (1.003-1.030); UR SQUAMOUS EPITHELIAL CELL FEW /HPF (FEW); UR TOTAL PROTEIN (Dip) NEGATIVE (NEGATIVE); UR UROBILINOGEN (Dip) NEGATIVE (NEGATIVE); UR WBC 11 /HPF (0-5)
[2018-07-26] MEDS ORDERED: ONDANSETRON 4 MG INJ IV ×2 (05:30→07:30)
[2018-07-26] MEDS ORDERED: ACETAMINOPHEN 325 MG TAB PO ×2 (05:30→07:30)
[2018-07-26 06:15] LABS: LACTIC ACID 1.8 mmol/L (0.5-2.0)
[2018-07-26] MEDS ORDERED: HYDROCODONE/APAP (5/325) TAB PO (07:30)
[2018-07-26] MEDS ORDERED: NACL 0.9% 3 ML SYG IV (07:30)
[2018-07-26] MEDS ORDERED: ALBUTEROL/IPRATROPIUM (NEB) 3 ML AMP HHN ×3 (07:30→13:00)
[2018-07-26] MEDS ORDERED: GLUCOSE GEL 15 GRAM TUBE BUCCAL (08:00)
[2018-07-26] MEDS ORDERED: DEXTROSE 50% 50 ML SYRINGE IV ×2 (08:00)
[2018-07-26] MEDS ORDERED: GLUCAGON 1 MG INJ IM (08:00)
[2018-07-26] MEDS ORDERED: GLUCOSE GEL 15 GRAM TUBE PO ×2 (08:00)
[2018-07-26] MEDS: INSULIN ASPART [NOVOLOG] 3 ML PEN SC ×5 (09:24→20:12)
[2018-07-26] MEDS: metFORMIN 500 MG TAB PO (09:26)
[2018-07-26] MEDS: BUMETANIDE 1 MG TAB PO (09:26)
[2018-07-26] MEDS: AMIODARONE 200 MG TAB PO (09:27)
[2018-07-26] MEDS: APIXABAN 5 MG TABLET PO ×2 (09:28→20:09)
[2018-07-26] MEDS: SENNA TAB PO ×2 (09:28→20:16)
[2018-07-26] MEDS: DIGOXIN 0.125 MG TAB PO (09:28)
[2018-07-26] MEDS: THIAMINE 100 MG TAB PO (09:28)
[2018-07-26] MEDS: ALBUTEROL HFA 8 GM INHALER INH (09:29)
[2018-07-26] MEDS: METOPROLOL 25 MG TAB PO ×2 (09:29→20:09)
[2018-07-26 09:47] LABS: B-TYPE NATRIURETIC PEPTIDE 2350 PG/ML (0-125)
[2018-07-26] MEDS ORDERED: BUMETANIDE 1 MG INJ IV ×2 (13:00→18:00)
[2018-07-26] MEDS: INSULIN GLARGINE [LANTus] (100 UNITS/ML) SYG SC ×2 (13:33→20:11)
[2018-07-26] MEDS: IPRATROPIUM (NEB) 0.5 MG/2.5 ML AMP HHN ×3 (14:28→21:35)
[2018-07-26] MEDS: LEVALBUTEROL (NEB) 1.25 MG/0.5 ML AMP HHN ×3 (14:29→21:35)
[2018-07-26] MEDS ORDERED: INSULIN ASPART [NOVOLOG] 3 ML PEN SC (17:35)
[2018-07-26] MEDS: BUMETANIDE 2 MG in DEXTROSE 5% 17 ML IV (18:34)
[2018-07-26] MEDS: PRIMIDONE 50 MG TAB PO (20:09)
[2018-07-26] MEDS: LINAGLIPTIN 5 MG TABLET PO (20:09)
[2018-07-26] MEDS: ATORVASTATIN 40 MG TAB PO (20:09)
[2018-07-27] MEDS: LEVALBUTEROL (NEB) 1.25 MG/0.5 ML AMP HHN ×6 (01:13→21:25)
[2018-07-27] MEDS: ACCU-CHEK XX (01:56)
[2018-07-27] MEDS: LEVOFLOXACIN 750MG/D5W (PMX) 150 ML IVPB (02:00)
[2018-07-27 04:54] LABS: ADD MAN DIFF? NO
[2018-07-27 04:59] LABS: ABNORMAL IP MESSAGE 1; BASOPHILS % 0.3 % (0.0-2.0); EOSINOPHILS % 0.3 % (0.0-7.0); HEMATOCRIT 41.4 % (37.0-47.0); HEMOGLOBIN 11.9 g/dl (12.0-16.0); LYMPHOCYTES # 1.3 10^3/ul (0.8-2.9); LYMPHOCYTES % 13.7 % (15.0-51.0); MEAN CORPUSCULAR HEMOGLOBIN 28.5 pg (29.0-33.0); MEAN CORPUSCULAR HGB CONC 28.7 g/dl (32.0-37.0); MEAN CORPUSCULAR VOLUME 99.3 fl (82.0-101.0); MEAN PLATELET VOLUME 10.7 fl (7.4-10.4); MONOCYTES % 10.6 % (0.0-11.0); NEUTROPHILS % 74.5 % (39.0-77.0); PLATELET COUNT 157 10^3/UL (140-415); RED BLOOD COUNT 4.17 10^6/ul (4.20-5.40); RED CELL DISTRIBUTION WIDTH 17.1 % (11.5-14.5)
[2018-07-27 04:59] LABS: WHITE BLOOD COUNT 9.4 10^3/ul (4.8-10.8)
[2018-07-27 05:16] LABS: POSITIVE DIFF @See below
[2018-07-27 05:18] LABS: ALANINE AMINOTRANSFERASE 30 IU/L (13-69); ALBUMIN 3.6 g/dl (3.3-4.9); ALBUMIN/GLOBULIN RATIO 1.33; ALKALINE PHOSPHATASE 61 IU/L (42-121); ASPARTATE AMINO TRANSFERASE 27 IU/L (15-46); BILIRUBIN,INDIRECT 0.2 mg/dl (0-1.1); BILIRUBIN,TOTAL 0.2 mg/dl (0.2-1.3); BLOOD UREA NITROGEN 30 mg/dl (7-20); CALCIUM 8.4 mg/dl (8.4-10.2); CHLORIDE 88 mmol/L (97-110); CREATININE 0.77 mg/dl (0.44-1.00); Estimated GFR > 60 mL/min (>60); GLUCOSE 137 mg/dl (70-220); MAGNESIUM 1.9 mg/dl (1.7-2.5); POTASSIUM 4.5 mmol/L (3.5-5.1); SODIUM 142 mmol/L (135-144); TOTAL PROTEIN 6.3 g/dl (6.1-8.1)
[2018-07-27 05:44] LABS: ANION GAP 17 (5-13)
[2018-07-27 05:51] LABS: CARBON DIOXIDE 37 mmol/L (21-31)
[2018-07-27] MEDS: BUMETANIDE 2 MG in DEXTROSE 5% 17 ML IV ×2 (06:39→17:38)
[2018-07-27] MEDS: INSULIN ASPART [NOVOLOG] 3 ML PEN SC ×7 (07:35→20:01)
[2018-07-27] MEDS: INSULIN GLARGINE [LANTus] (100 UNITS/ML) SYG SC ×2 (07:50→21:08)
[2018-07-27] MEDS: THIAMINE 100 MG TAB PO (08:11)
[2018-07-27] MEDS: DIGOXIN 0.125 MG TAB PO (08:11)
[2018-07-27] MEDS: AMIODARONE 200 MG TAB PO (08:11)
[2018-07-27] MEDS: APIXABAN 5 MG TABLET PO ×2 (08:11→20:00)
[2018-07-27] MEDS: SENNA TAB PO ×2 (08:12→20:02)
[2018-07-27] MEDS: predniSONE 20 MG TAB PO (08:12)
[2018-07-27] MEDS: METOPROLOL 25 MG TAB PO ×2 (08:42→20:00)
[2018-07-27] MEDS ORDERED: METHYLPREDNISOLONE 125 MG INJ IV (09:00)
[2018-07-27] MEDS: IPRATROPIUM (NEB) 0.5 MG/2.5 ML AMP HHN ×4 (09:30→21:25)
[2018-07-27] MEDS: ATORVASTATIN 40 MG TAB PO (20:00)
[2018-07-27] MEDS: PRIMIDONE 50 MG TAB PO (20:00)
[2018-07-27] MEDS: LINAGLIPTIN 5 MG TABLET PO (20:00)
[2018-07-28] MEDS: LEVALBUTEROL (NEB) 1.25 MG/0.5 ML AMP HHN ×5 (00:48→16:51)
[2018-07-28] MEDS: ACCU-CHEK XX (02:12)
[2018-07-28 04:23] LABS: ADD MAN DIFF? NO
[2018-07-28 04:29] LABS: WHITE BLOOD COUNT 10.2 10^3/ul (4.8-10.8)
[2018-07-28 04:29] LABS: BASOPHILS % 0.2 % (0.0-2.0); EOSINOPHILS # 0.1 10^3/ul (0.0-0.5); EOSINOPHILS % 0.5 % (0.0-7.0); HEMATOCRIT 39.7 % (37.0-47.0); HEMOGLOBIN 11.6 g/dl (12.0-16.0); LYMPHOCYTES % 19.6 % (15.0-51.0); MEAN CORPUSCULAR HEMOGLOBIN 28.7 pg (29.0-33.0); MEAN CORPUSCULAR HGB CONC 29.2 g/dl (32.0-37.0); MEAN CORPUSCULAR VOLUME 98.3 fl (82.0-101.0); MEAN PLATELET VOLUME 10.2 fl (7.4-10.4); MONOCYTE # 0.9 10^3/ul (0.3-0.9); MONOCYTES % 9.2 % (0.0-11.0); NEUTROPHIL # 7.2 10^3/ul (1.6-7.5); PLATELET COUNT 168 10^3/UL (140-415); RED BLOOD COUNT 4.04 10^6/ul (4.20-5.40)
[2018-07-28 04:49] LABS: BLOOD UREA NITROGEN 31 mg/dl (7-20); CALCIUM 8.5 mg/dl (8.4-10.2); CHLORIDE 89 mmol/L (97-110); CREATININE 0.79 mg/dl (0.44-1.00); Estimated GFR > 60 mL/min (>60); GLUCOSE 85 mg/dl (70-220); POTASSIUM 4.2 mmol/L (3.5-5.1); SODIUM 141 mmol/L (135-144)
[2018-07-28 04:58] LABS: ANION GAP 7 (5-13)
[2018-07-28 05:05] LABS: CARBON DIOXIDE 45 mmol/L (21-31)
[2018-07-28] MEDS: BUMETANIDE 2 MG in DEXTROSE 5% 17 ML IV (06:26)
[2018-07-28] MEDS: INSULIN ASPART [NOVOLOG] 3 ML PEN SC ×4 (08:00→12:19)
[2018-07-28] MEDS: THIAMINE 100 MG TAB PO (08:41)
[2018-07-28] MEDS: APIXABAN 5 MG TABLET PO (08:41)
[2018-07-28] MEDS: SENNA TAB PO (08:41)
[2018-07-28] MEDS: DIGOXIN 0.125 MG TAB PO (08:42)
[2018-07-28] MEDS: AMIODARONE 200 MG TAB PO (08:42)
[2018-07-28] MEDS: METOPROLOL 25 MG TAB PO (08:42)
[2018-07-28] MEDS: IPRATROPIUM (NEB) 0.5 MG/2.5 ML AMP HHN ×3 (08:57→16:51)
== END 2018-07-28 17:38 | disposition home or self-care (01) | DRG 291 ==
LOC: 6WM 07-28 04:23 → ICU 12:07 → E/R 01:16 → ICU 05:15
PROVIDERS: Internal Medicine
DX: I11.0 Hypertensive heart disease with heart failure (principal); J96.21 Acute and chronic respiratory failure with hypoxia; J96.22 Acute and chronic respiratory failure with hypercapnia; Z68.41 Body mass index [BMI] 40.0-44.9, adult; J44.1 Chronic obstructive pulmonary disease with (acute) exacerbation; E66.2 Morbid (severe) obesity with alveolar hypoventilation; D69.6 Thrombocytopenia, unspecified; Z99.81 Dependence on supplemental oxygen; I48.2 Chronic atrial fibrillation; Z79.01 Long term (current) use of anticoagulants; I50.33 Acute on chronic diastolic (congestive) heart failure; E78.5 Hyperlipidemia, unspecified; E11.9 Type 2 diabetes mellitus without complications; D64.9 Anemia, unspecified; Z71.3 Dietary counseling and surveillance; Z79.4 Long term (current) use of insulin; Z87.891 Personal history of nicotine dependence
CPT/HCPCS: 36415; 71045; 80048; 80053; 81001; 82803; 82962; 83605; 83735; 83880; 84484; 85025; 85610; 85730; 87040; 87081; 87086; 87400; 93005; 94640; 94644; 96365; 96366; 96375; 97161; 99291-25